=== PATIENT | male | born 1935 | race Caucasian/White ===

== ENCOUNTER 2016-03-03 20:28 | Inpatient (IN) ==
[2016-03-03] MEDS ORDERED: Ondansetron 4 MG/2 ML VIAL IVP PRN (23:43)
[2016-03-03] MEDS ORDERED: 0.9 % Sodium Chloride 500 ML IVC ONE (23:43)
[2016-03-03] MEDS ORDERED: Vancomycin 1,250 MG in D5% in Water 250 ML IVPB SCH (23:45)
[2016-03-03] MEDS ORDERED: *HR* LORazepam 2 MG/ML VIAL IVP PRN (23:45)
--- NOTE | 2016-03-03 23:56 | Internal Med History&Physical ---
Date of Encounter: 03/03/16 Time of Encounter: 23:52 Assessment and Plan (1) Wound infection Current visit: Yes Status: Acute Wound cultures will be performed. wound care will follow the patient will be started empirically on vanc and Zosyn. (2) Alcohol abuse Current visit: No Status: Acute Last drink yesterday noon will be our CIWA protocol. no withdrawal symptoms or signs currently (3) CHF (congestive heart failure) Current visit: No Status: Acute Clinically compensated. Watch for signs of overload hydrating the patient Qualifiers: Congestive heart failure type: systolic Congestive heart failure chronicity : acute on chronic Qualified Code(s): I50.23 - Acute on chronic systolic ( congestive) heart failure (4) Hypotension Current visit: No Status: Acute Due to sepsis. Improving currently blood pressure is 90s over 60s. Good urine output when the folder was placed. Continue hourly monitoring of the urine output. Continual hydration Qualifiers: Hypotension type: unspecified hypotension type Qualified Code(s): I95.9 - Hypotension, unspecified (5) Urinary tract infection Current visit: No Status: Acute Broad-spectrum antibiotics till cultures are back Qualifiers: Urinary tract infection type: site unspecified Hematuria presence: without hematuria Qualified Code(s): N39.0 - Urinary tract infection, site not specified Internal Medicine - H&P: HPI Chief complaint: hypotension History of present illness: Mr. Nascimento is a 80 year old male with multiple medical problems who was transferred from [facility] because of hypotension. Patient was admitted yesterday after his family noted that he has been getting very weak and confused. He is also been unsteady on his cheng with frequent falls. Families unable to take care of him at home. His health has been declining since his 's and Easter. He is an alcoholic drinks about 6 beers every day last week was yesterday known. It was found that [facility] to have evidence of Ravinder tract infection in addition to multiple decubitus forms. Remained hypotensive after minimal fluid resuscitation soul was sent to our facility for further management. He denies any cough. No sputum production. No abdominal pain or vomiting is able to tolerate food. No chest pain. Past Med Surg Social Fam HX - Past Medical History Medical history: atrial fibrillation, CHF, COPD, coronary artery disease, hypertension, myocardial infarction, TIA, other Psychiatric history: anxiety, depression - Past Surgical History Surgical History: angioplasty/stent, heart valve replacement - Social History Smoking Status: Former smoker Smokeless Tobacco Status: No Alcohol use: heavy Drug use: none Internal Medicine - H&P: Meds Aspirin [Aspirin] 1 tab PO DAILY 08/30/15 [History] Cyanocobalamin (B-12) [Vitamin B12] 1,000 mcg PO DAILY 08/30/15 [History] Gabapentin [Neurontin] 300 mg PO TID 08/30/15 [History] Lisinopril [Zestril] 40 mg PO DAILY 08/30/15 [History] Metoprolol Succinate 50 mg PO BID 08/30/15 [History] Nitroglycerin [Nitrostat] 0.4 mg SL Q3-5MIN PRN 08/30/15 [History] Omeprazole [PriLOSEC] 20 mg PO BID 08/30/15 [History] Tamsulosin HCl [Flomax] 1 cap PO QAM 08/30/15 [History] Amiodarone [Cordarone] 200 mg PO DAILY 03/02/16 [History] Atorvastatin [Lipitor] 10 mg PO HS 03/02/16 [History] Clopidogrel [Plavix] 75 mg PO DAILY 03/02/16 [History] Fluticasone Propionate [Flovent Diskus] 50 mcg IH BID 03/02/16 [History] Furosemide [Lasix] 40 mg PO DAILY 03/02/16 [History] Magnesium Oxide [Magnesium] 400 mg PO BID 03/02/16 [History] Allergies No Known Allergies Allergy (Verified 08/30/15 18:10) All Systems PM: A 10-system review of systems was performed and is negative for pertinent findings except as documented above in the HPI. Review of systems: 10 points of view systems is negative except for HPI. - Constitutional Vitals: Temp Pulse Resp BP Pulse Ox 97.5 F L 87 16 101/61 100 03/03/16 22:31 03/03/16 23:00 03/03/16 23:00 03/03/16 23:00 03/03/16 23:00 Exam: Gen.: patient is alert not in distress. Cardiac: normal S1 S2 no additional sounds or murmur. Chest: Clear auscultation bilaterally abdomen: soft nontender nondistended normal bowel sounds no focal neurological deficits lower extremity lax calf muscles Skin: Multiple open wounds in left foot: left leg has foul smelling drainage according to nurse (just dressed). He also has a necrotic wound on his back as well as stage 2 bed sores
[2016-03-04] MEDS: 0.9 % Sodium Chloride 1,000 ML IVC SCH ×2 (00:09→09:44)
[2016-03-04] MEDS: Piperacillin/Tazobactam 3.375 GM in D5% in Water (Mini-Bag+) 100 ML IVPB SCH ×3 (00:29→16:17)
[2016-03-04 00:32] LABS: Basophils # 0.1 K/mcL (0.0-0.2); Basophils % 0.5 %; Eosinophils # 0.1 K/mcL (0.0-0.6); Eosinophils % 0.4 %; Hematocrit 34.7 % (37.5-50.1); Hemoglobin 12.4 g/dL (12.9-16.9); Immature Granulocytes % 1.9 % (0-4); Lymphocytes % 8.7 %; Mean Corpuscular HGB Conc 35.7 g/dL (31.6-35.5); Mean Corpuscular Hemoglobin 30.8 pg (28.0-33.3); Mean Corpuscular Volume 86.1 fL (83.0-100.0); Mean Platelet Volume 9.4 fL (9.4-12.4); Monocytes % 8.2 %; Neutrophils # 9.6 K/mcL (1.6-8.9); Platelet Count 243 K/mcL (140-400); Red Blood Count 4.03 M/mcL (4.19-5.50); Red Cell Distribution Width 13.3 % (11.5-14.5); Segmented Neutrophils % 80.3 %
[2016-03-04 00:47] LABS: Alanine Aminotransferase 16 Units/L (0-55); Albumin 2.4 g/dL (3.5-5.0); Albumin/Globulin Ratio 0.6 (1.1-2.2); Alkaline Phosphatase 66 Units/L (38-126); Aspartate Amino Transferase 21 Units/L (5-34); BUN/Creatinine Ratio 14 (6-26); Bilirubin,Total 0.8 mg/dL (0.2-1.2); Blood Urea Nitrogen 15 mg/dL (8-26); C-Reactive Protein 99 mg/L (Less than 5); Calcium 8.2 mg/dL (8.6-10.8); Carbon Dioxide 19 mEq/L (19-29); Chloride 103 mEq/L (98-109); Globulin 3.7 g/dL (2.4-3.5); Glucose 117 mg/dL (70-99); Magnesium 1.5 mg/dL (1.6-2.6); Osmolality,Calculated 272 (280-300); Potassium 3.3 mEq/L (3.5-4.5); Sodium 130 mEq/L (136-145); Total Protein 6.1 g/dL (6.0-8.3); eGFR For African Americans > 60 (> 60); eGFR For Non-African Americans > 60 (> 60)
[2016-03-04] MEDS ORDERED: Vancomycin 1,250 MG in D5% in Water 250 ML IVPB SCH ×2 (01:00→13:00)
[2016-03-04] MEDS ORDERED: Potassium Chloride 20 MEQ, Lidocaine 1% 2 ML in D5% in Water 250 ML IVPB ONE (05:51)
[2016-03-04] MEDS ORDERED: Magnesium Sulfate 2 GM in D5% in Water 100 ML IVPB ONE (05:51)
[2016-03-04] MEDS: *HR* Heparin 5,000 UNIT/ML VIAL SQ SCH ×2 (06:11→18:27)
--- NOTE | 2016-03-04 07:33 | Pulmonology Consult Note ---
<Art Garcia - Last Filed: 03/04/16 11:43> Date of Encounter: 03/04/16 Time of Encounter: 07:33 Assessment and Plan (1) Wound infection Current Visit: Yes Status: Acute Patient has a large wound on the left lateral foot. This appears to be infected. Patient is on antibiotics with vancomycin and Zosyn. Cultures are pending. Patient initially had some hypotension that responded well to fluids. Mental status appears to be at baseline. We will consult wound care for further recommendations on wound treatment. (2) Change in mental status Current Visit: No Status: Acute Likely related to his underlying infection as discussed above. Patient had sure workup at an outside hospital. Per family his mental status is at his baseline. Qualifiers: Altered mental status type: unspecified Qualified Code(s): R41.82 - Altered mental status, unspecified (3) Atrial fibrillation Current Visit: Yes Status: Acute Per outside records the patient has chronic atrial fibrillation. At this time is in atrial fibrillation with rate well controlled. Patient has a [id number]- Vasc of 7, however review of outside records revealed that the patient is not on anticoagulation, likely due to issues with falls. Given the patient's borderline low blood pressure we will hold AV node blocking agents at this time. We will continue to monitor his hemodynamic status. Qualifiers: Atrial fibrillation type: chronic Qualified Code(s): I48.2 - Chronic atrial fibrillation (4) Alcohol abuse Current Visit: No Status: Acute She has a significant history of alcohol abuse with reported alcohol intake of up to 15 beers a day. This could also be contributing to his altered mental status. There are no evidence of withdrawal symptoms. Patient not place in the CIWA protocol. We will replace thiamine and vitamins. (5) CHF (congestive heart failure) Current Visit: No Status: Chronic Stable at this time. No evidence of fluid overload. Respiratory status is good. We will continue to monitor. Qualifiers: Congestive heart failure type: systolic Congestive heart failure chronicity : chronic Qualified Code(s): I50.22 - Chronic systolic (congestive) heart failure (6) Hyponatremia Current Visit: Yes Status: Acute Mild with a sodium of 131. Asymptomatic. Patient appears somewhat hypovolemic , likely related to poor by mouth intake in the setting of alcohol abuse. Chronicity is unknown at this time. Patient was given fluid hydration. We will continue to monitor. (7) DVT prophylaxis Current Visit: Yes Status: Acute Heparin 5000 units subcutaneous twice a day. History of Present Illness Consult date: 03/04/16 Requesting physician: Terrell Valdez Reason for consult: other (Hypotension) Chief complaint: Confusion History of present illness: Patient is a 80-year-old male with history of coronary disease, atrial fibrillation who presented initially with confusion. Patient is somewhat of a poor historian. Per family for about 2 weeks the patient has not been himself, they state he has been dizzy and has had episodes of confusion and not answering questions appropriately. A few days prior to arrival they noticed a large blister on his left foot which turned into a wound. They have been treating him however brought him to the emergency department because of his change in mental status. Upon arrival the patient was found to be hypotensive and was placed in the intensive care unit. At the time I examined the patient is awake, alert and acting appropriately. He states he feels much better and is asking to go this time. He has no other complaints. Past Med Surg Social Fam HX - Past Medical History Medical history: atrial fibrillation, CHF, COPD, coronary artery disease, hypertension, myocardial infarction, TIA, other Psychiatric history: anxiety, depression - Past Surgical History Surgical History: angioplasty/stent, heart valve replacement - Social History Smoking Status: Former smoker Smokeless Tobacco Status: No Alcohol use: heavy Drug use: none Medications and Allergies Aspirin [Aspirin] 1 tab PO DAILY 08/30/15 [History] Cyanocobalamin (B-12) [Vitamin B12] 1,000 mcg PO DAILY 08/30/15 [History] Gabapentin [Neurontin] 300 mg PO TID 08/30/15 [History] Nitroglycerin [Nitrostat] 0.4 mg SL Q3-5MIN PRN 08/30/15 [History] Omeprazole [PriLOSEC] 20 mg PO BID 08/30/15 [History] Tamsulosin HCl [Flomax] 1 cap PO QAM 08/30/15 [History] Atorvastatin [Lipitor] 10 mg PO HS 03/02/16 [History] Clopidogrel [Plavix] 75 mg PO DAILY 03/02/16 [History] Furosemide [Lasix] 40 mg PO DAILY 03/02/16 [History] Diltiazem HCl [Diltiazem 24Hr Cd] 180 mg PO BID 03/04/16 [History] Allergies No Known Allergies Allergy (Verified 08/30/15 18:10) ROS unobtainable: due to mental status All Systems: A 10-system review of systems was performed and is negative for pertinent findings except as documented above in the HPI. Physical Examination Vital Signs: Vital Signs, Last 4 Hours Temp Pulse Resp BP Pulse Ox 03/04/16 06:00 98 20 107/80 100 03/04/16 05:00 84 20 105/56 100 03/04/16 04:30 84 03/04/16 04:29 97.6 F 03/04/16 04:00 81 14 83/73 100 General appearance: no acute distress ENT: oropharynx moist Effort: normal Auscultation: bilateral: clear Cardiovascular: irregular rhythm Gastrointestinal: normoactive bowel sounds, soft, non-tender, non-distended Integumentary: decubitus ulcer (2 superficial ulcers to the buttocks that do not appear infected at this time. Patient also has an ulcer in the mid thoracic back with black eschar present. No evidence of active infection.), other (Patient has a large ulcerated wound on the left foot with surrounding erythema infecting the 3 most lateral toes. There is a small amount of foul- smelling purulent material. There is no bone visualized.) Extremities: no cyanosis, no edema, no clubbing, pulses normal non-focal exam, other (Patient will answer most questions appropriately however he is not the greatest historian and appears occasionally nonsensical. Family states that he is acting like his normal self at this time.) Results - Laboratory Findings CBC and BMP: 03/04/16 07:47 03/04/16 07:47 Abnormal lab findings: Abnormal lab results WBC 11.9 K/mcL (4.3-11.1) H 03/04/16 00:25 RBC 4.03 M/mcL (4.19-5.50) L 03/04/16 00:25 Hgb 12.4 g/dL (12.9-16.9) L 03/04/16 00:25 Hct 34.7 % (37.5-50.1) L 03/04/16 00:25 MCHC 35.7 g/dL (31.6-35.5) H 03/04/16 00:25 Neutrophils # 9.6 K/mcL (1.6-8.9) H 03/04/16 00:25 Sodium 130 mEq/L (136-145) L 03/04/16 00:25 Potassium 3.3 mEq/L (3.5-4.5) L 03/04/16 00:25 Glucose 117 mg/dL (70-99) H 03/04/16 00:25 Calculated Osmolality 272 (280-300) L 03/04/16 00:25 Calcium 8.2 mg/dL (8.6-10.8) L 03/04/16 00:25 Magnesium 1.5 mg/dL (1.6-2.6) L 03/04/16 00:25 C-Reactive Protein 99 mg/L (Less than 5) H 03/04/16 00:25 Albumin 2.4 g/dL (3.5-5.0) L 03/04/16 00:25 Globulin 3.7 g/dL (2.4-3.5) H 03/04/16 00:25 Albumin/Globulin Ratio 0.6 (1.1-2.2) L 03/04/16 00:25 - Clinical Findings Intake & Output: Intake & Output 03/03/16 03/03/16 03/04/16 15:59 23:59 07:59 Intake Total 1210 / 1210 Output Total 800 / 800 500 / 500 Balance -800 / -800 710 / 710 Weight 86.183 kg Consult Discharge Plan - Plan Referrals: NO,PCP [Primary Care Provider] - <Laureano Mcguire W - Last Filed: 03/04/16 12:25> Date of Encounter: 03/04/16 All Systems: A 10-system review of systems was performed and is negative for pertinent findings except as documented above in the HPI. Physical Examination Vital Signs: Vital Signs, Last 4 Hours Temp Pulse Resp BP Pulse Ox 03/04/16 06:00 98 20 107/80 100 03/04/16 05:00 84 20 105/56 100 03/04/16 04:30 84 03/04/16 04:29 97.6 F 03/04/16 04:00 81 14 83/73 100 Results - Laboratory Findings CBC and BMP: 03/04/16 07:47 03/04/16 07:47 Abnormal lab findings: Abnormal lab results WBC 11.9 K/mcL (4.3-11.1) H 03/04/16 00:25 RBC 4.03 M/mcL (4.19-5.50) L 03/04/16 00:25 Hgb 12.4 g/dL (12.9-16.9) L 03/04/16 00:25 Hct 34.7 % (37.5-50.1) L 03/04/16 00:25 MCHC 35.7 g/dL (31.6-35.5) H 03/04/16 00:25 Neutrophils # 9.6 K/mcL (1.6-8.9) H 03/04/16 00:25 Sodium 130 mEq/L (136-145) L 03/04/16 00:25 Potassium 3.3 mEq/L (3.5-4.5) L 03/04/16 00:25 Glucose 117 mg/dL (70-99) H 03/04/16 00:25 Calculated Osmolality 272 (280-300) L 03/04/16 00:25 Calcium 8.2 mg/dL (8.6-10.8) L 03/04/16 00:25 Magnesium 1.5 mg/dL (1.6-2.6) L 03/04/16 00:25 C-Reactive Protein 99 mg/L (Less than 5) H 03/04/16 00:25 Albumin 2.4 g/dL (3.5-5.0) L 03/04/16 00:25 Globulin 3.7 g/dL (2.4-3.5) H 03/04/16 00:25 Albumin/Globulin Ratio 0.6 (1.1-2.2) L 03/04/16 00:25 - Clinical Findings Intake & Output: Intake & Output 03/03/16 03/03/16 03/04/16 15:59 23:59 07:59 Intake Total 1210 / 1210 Output Total 800 / 800 500 / 500 Balance -800 / -800 710 / 710 Weight 86.183 kg - Attending Attestation I examined this patient and my medical decision-making was reviewed with the [employer]/PA/Advanced Practice Nurse/Resident Physician. I agree with the documented findings, disposition and treatment plan as described except to the extent set forth below. Patient seen and examined at bedside Labs, radiology, chart personally reviewed. All lines examined without evidence of infection. Neuro: Awake and alert. Moves all extremities. EtOH abuse banana bag given folate thiamine. Monitor for delirium on CIWA Pulm: Good O2 sats w/o O2. CXR without acute process. Cards: ECG without STEMI trop wnl; History of Afib rate is controlled on not on LTA s/t to falls risk. , hypotension (responsive to crystalloid and lactate wnl)challenge)goal MAP >60 likely s/t sepsis +/- hypovolemia FEN-GI: ADAT Renal: Asymptomatic Hyponatremia multifactorial including excess beer intake chronically and acutely intravascular volume depletion. cont to monitor. ID: Sepsis possible s/t to LE ulcer infection. cont ABx. wounds cultured as would blood and urine. Ortho consulted for foot ulcer Xrays pending Heme/Onc: cont DVT prophylaxis Endo: Glucose monitored Integ: cont skin care per ICU protocol. wound care consulted CODE: Full some evidence of failure to thrive social service consult
[2016-03-04] MEDS ORDERED: Magnesium Sulfate 2 GM in D5% in Water 100 ML IVPB PRN (07:41)
[2016-03-04] MEDS ORDERED: Potassium Phosphate 44 MEQ in 0.9 % Sodium Chloride 250 ML IVPB PRN (07:41)
[2016-03-04] MEDS ORDERED: Calcium Gluconate 1,000 MG in D5% in Water 100 ML IVPB PRN (07:41)
[2016-03-04 07:56] LABS: Basophils # 0.1 K/mcL (0.0-0.2); Basophils % 0.5 %; Eosinophils # 0.1 K/mcL (0.0-0.6); Eosinophils % 0.7 %; Hematocrit 35.9 % (37.5-50.1); Hemoglobin 12.5 g/dL (12.9-16.9); Immature Granulocytes % 1.5 % (0-4); Lymphocytes # 1.4 K/mcL (0.6-4.6); Lymphocytes % 11.5 %; Mean Corpuscular HGB Conc 34.8 g/dL (31.6-35.5); Mean Corpuscular Hemoglobin 30.3 pg (28.0-33.3); Mean Corpuscular Volume 86.9 fL (83.0-100.0); Mean Platelet Volume 9.2 fL (9.4-12.4); Monocytes # 1.1 K/mcL (0.0-1.3); Monocytes % 8.9 %; Neutrophils # 9.3 K/mcL (1.6-8.9); Platelet Count 218 K/mcL (140-400); Red Blood Count 4.13 M/mcL (4.19-5.50); Red Cell Distribution Width 13.5 % (11.5-14.5); Segmented Neutrophils % 76.9 %
[2016-03-04 08:02] LABS: INR 1.2; Prothrombin Time 13.1 Seconds (9.4-12.1)
[2016-03-04 08:09] LABS: Ionized Calcium 1.12 mmol/L (1.15-1.35)
[2016-03-04 08:14] LABS: Alanine Aminotransferase 16 Units/L (0-55); Albumin 2.3 g/dL (3.5-5.0); Albumin/Globulin Ratio 0.6 (1.1-2.2); Alkaline Phosphatase 68 Units/L (38-126); Aspartate Amino Transferase 23 Units/L (5-34); BUN/Creatinine Ratio 13 (6-26); Bilirubin,Total 0.8 mg/dL (0.2-1.2); Blood Urea Nitrogen 13 mg/dL (8-26); Calcium 8.4 mg/dL (8.6-10.8); Carbon Dioxide 18 mEq/L (19-29); Chloride 103 mEq/L (98-109); Globulin 3.9 g/dL (2.4-3.5); Glucose 103 mg/dL (70-99); Magnesium 1.4 mg/dL (1.6-2.6); Osmolality,Calculated 268 (280-300); Phosphorous 2.5 mg/dL (2.3-4.7); Potassium 3.7 mEq/L (3.5-4.5); Sodium 129 mEq/L (136-145); Total Protein 6.2 g/dL (6.0-8.3); eGFR For African Americans > 60 (> 60); eGFR For Non-African Americans > 60 (> 60)
[2016-03-04] MEDS ORDERED: Aspirin 81 MG TAB.CHEW PO SCH (09:00)
[2016-03-04] MEDS ORDERED: *HR* LORazepam 2 MG/ML VIAL IVP PRN ×6 (10:55→21:20)
[2016-03-04] MEDS ORDERED: Thiamine (B-1) 100 MG, Folic Acid 1 MG, MVI, adult with vitamin K 10 ML in 0.9 % Sodi... IV SCH (11:00)
[2016-03-04] MEDS ORDERED: 0.9 % Sodium Chloride 500 ML IVC ONE (12:14)
[2016-03-04] MEDS ORDERED: Saline Nasal Spray 44 ML BOTTLE NS PRN ×2 (13:53→21:20)
[2016-03-04] MEDS ORDERED: Fluticasone Propionate Nasal 50 MCG/SPRAY BOTTLE NS SCH (14:00)
[2016-03-04] MEDS ORDERED: Gentamicin Oint 15 GM TUBE TP SCH (14:15)
[2016-03-04] MEDS: Azelastine 0.1% Nasal Spray 30 ML BOTTLE NS SCH ×2 (14:33→20:27)
[2016-03-04 17:38] LABS: Hemoglobin A1C 5.6 %
[2016-03-04] MEDS ORDERED: Ondansetron 4 MG/2 ML VIAL IVP PRN (21:20)
[2016-03-04] MEDS: *HR* HYDROcodone/Acet 5/325 mg TABLET PO PRN (22:33)
[2016-03-05] MEDS ORDERED: Vancomycin 1,250 MG in D5% in Water 250 ML IVPB SCH (01:00)
[2016-03-05] MEDS: *HR* Heparin 5,000 UNIT/ML VIAL SQ SCH ×2 (04:45→18:17)
[2016-03-05] MEDS: *HR* HYDROcodone/Acet 5/325 mg TABLET PO PRN (04:45)
[2016-03-05] MEDS: Aspirin 81 MG TAB.CHEW PO SCH (07:46)
[2016-03-05] MEDS: Piperacillin/Tazobactam 3.375 GM in D5% in Water (Mini-Bag+) 100 ML IVPB SCH ×3 (07:47→15:45)
[2016-03-05] MEDS: Azelastine 0.1% Nasal Spray 30 ML BOTTLE NS SCH (07:49)
[2016-03-05] MEDS: Gentamicin Oint 15 GM TUBE TP SCH (07:50)
[2016-03-05] MEDS: Fluticasone Propionate Nasal 50 MCG/SPRAY BOTTLE NS SCH (07:50)
[2016-03-05] MEDS ORDERED: Thiamine (B-1) 100 MG, Folic Acid 1 MG, MVI, adult with vitamin K 10 ML in 0.9 % Sodi... IV SCH (09:00)
[2016-03-05 10:00] LABS: Basophils # 0.1 K/mcL (0.0-0.2); Basophils % 1.4 %; Eosinophils # 0.2 K/mcL (0.0-0.6); Eosinophils % 1.6 %; Hematocrit 34.9 % (37.5-50.1); Hemoglobin 11.8 g/dL (12.9-16.9); Lymphocytes # 1.6 K/mcL (0.6-4.6); Lymphocytes % 17.2 %; Mean Corpuscular HGB Conc 33.8 g/dL (31.6-35.5); Mean Corpuscular Hemoglobin 30.5 pg (28.0-33.3); Mean Corpuscular Volume 90.2 fL (83.0-100.0); Mean Platelet Volume 9.3 fL (9.4-12.4); Monocytes # 0.7 K/mcL (0.0-1.3); Monocytes % 7.2 %; Neutrophils # 6.7 K/mcL (1.6-8.9); Platelet Count 171 K/mcL (140-400); Red Blood Count 3.87 M/mcL (4.19-5.50); Red Cell Distribution Width 13.8 % (11.5-14.5); Segmented Neutrophils % 70.6 %
[2016-03-05 10:08] LABS: BUN/Creatinine Ratio 10 (6-26); Blood Urea Nitrogen 12 mg/dL (8-26); Carbon Dioxide 15 mEq/L (19-29); Chloride 107 mEq/L (98-109); Glucose 112 mg/dL (70-99); Osmolality,Calculated 271 (280-300); Sodium 130 mEq/L (136-145); eGFR For African Americans > 60 (> 60); eGFR For Non-African Americans 56 (> 60)
[2016-03-05 11:24] LABS: Platelet Estimate Slight Decrease (Normal)
[2016-03-05] MEDS ORDERED: Permethrin Cream Rinse 60 ML LIQUID TP ONE (11:52)
--- NOTE | 2016-03-05 11:56 | Internal Med Progress Note ---
Date of Encounter: 03/05/16 Time of Encounter: 10:00 - Assessment and plan (1) Atrial fibrillation Current Visit: Yes Status: Acute Assessment and plan: Chronic, rate controlled, not on anticoagulation possibly from recurrent falls, Home dose of diltiazem 180mg has been held since admission due to hypotension Will continue to monitor and restart based on rate and hemodynamic status Qualifiers: Atrial fibrillation type: chronic Qualified Code(s): I48.2 - Chronic atrial fibrillation (2) Hyponatremia Current Visit: Yes Status: Chronic Assessment and plan: Chronic, from 08/2015, stable at 130 Will continue to monitor (3) Wound infection Current Visit: Yes Status: Acute Assessment and plan: Foot X-ray does not show any gas No fever Initial leukocytosis on admission has resolved on vancomycin and zosyn, continue till final cultures, will deescalate prn Blood culture partial no growth Wound care review (4) Alcohol abuse Current Visit: Yes Status: Chronic Assessment and plan: Change IV thiamine to oral Continue folate/multivitamin Monitor for withdrawal (5) Depression Current Visit: Yes Status: Chronic Assessment and plan: NO SI Qualifiers: Depression Type: unspecified Qualified Code(s): F32.9 - Major depressive disorder, single episode, unspecified (6) Hypotension Current Visit: Yes Status: Acute Assessment and plan: BP has been low normal , no longer on IVF, not on antihypertensives Monitor closely Qualifiers: Hypotension type: unspecified hypotension type Qualified Code(s): I95.9 - Hypotension, unspecified (7) Urinary tract infection Current Visit: Yes Status: Acute Assessment and plan: Urine culture with no growth Continue antibiotics Qualifiers: Urinary tract infection type: site unspecified Hematuria presence: without hematuria Qualified Code(s): N39.0 - Urinary tract infection, site not specified (8) CHF (congestive heart failure) Current Visit: Yes Status: Chronic Assessment and plan: No signs of congestion or overload Monitor closely Qualifiers: Congestive heart failure type: systolic Congestive heart failure chronicity : chronic Qualified Code(s): I50.22 - Chronic systolic (congestive) heart failure - Subjective Interval history: 80 Y/O M admitted for management of Sepsis with altered mental status, Hypotension, UTI and wound infection from left foot Associated history of alcohol abuse. PMH significant for CHF, Afib not on anticoagulation, CAD Seen at bedside denies new complains RN noted head lice - Constitutional Vitals: Temp Pulse Resp BP Pulse Ox 98.0 F 91 18 95/48 99 03/05/16 11:33 03/05/16 11:33 03/05/16 11:33 03/05/16 11:33 03/05/16 11:33 General appearance: Present: A&O X 3, pleasant, no acute distress - Head Head exam: Present: atraumatic - Eye Eye exam: Present: PERRL, conjuntiva pink, sclera anicteric - ENT ENT exam: Present: mucous membranes moist - Neck Neck exam general surgery: Present: normal inspection - Respiratory Respiratory exam: Present: CTAB. Absent: rales, rhonchi, wheezes - Cardiovascular Cardiovascular exam: Present: irregular rhythm, +S1, +S2. Absent: +S3, systolic murmur - GI/Abdominal GI/Abdominal exam: Present: normal bowel sounds, soft, no peritoneal signs. Absent: tenderness - Extremities Exam Extremities exam: Absent: pedal edema Additional comments: Left foot in wound dressing, surrounding hyperemia seen up to the ankle, mild edema Right foot unremarkable - Neurological Exam Neurological exam: Present: alert, oriented X3, no focal deficits. Absent: pronater drift, facial droop, speech deficit - Skin Skin exam: Present: dry Internal Medicine: Result - Labs CBC & Chem 7: 03/05/16 09:47 03/05/16 09:47 Labs: Short CBC 03/05/16 Range/Units 09:47 WBC 9.5 (4.3-11.1) K/mcL Hgb 11.8 L (12.9-16.9) g/dL Hct 34.9 L (37.5-50.1) % Plt Count 171 (140-400) K/mcL Neutrophils # 6.7 (1.6-8.9) K/mcL BMP 03/05/16 09:47 Sodium 130 L Potassium 4.0 Chloride 107 Carbon Dioxide 15 L BUN 12 Creatinine 1.25 Glucose 112 H Calcium 8.0 L - ABG Interpretation ABG results: PT/INR, D-dimer PT 13.1 Seconds (9.4-12.1) H 03/04/16 07:47 - Impressions Impressions Foot X-Ray 03/04/16 12:12 IMPRESSION: No evidence of focal soft tissue gas. No specific radiographic evidence of osteomyelitis. Findings suggesting diabetes. Moderate 1st MTP joint osteoarthritis. D/ / Jesse Dennis MD / Jesse Dennis MD Interpreting Provider: Jesse Dennis MD - VTE Documentation of Mechanical Device: Intermittent pneumatic compression device Consult Discharge Plan - Plan Referrals: NO,PCP [Primary Care Provider] -
[2016-03-05] MEDS: Vancomycin 1,000 MG in D5% in Water 250 ML IVPB SCH (15:30)
[2016-03-06] MEDS: Piperacillin/Tazobactam 3.375 GM in D5% in Water (Mini-Bag+) 100 ML IVPB SCH ×4 (00:18→23:32)
[2016-03-06] MEDS: Azelastine 0.1% Nasal Spray 30 ML BOTTLE NS SCH ×2 (00:18→07:44)
[2016-03-06] MEDS: *HR* Heparin 5,000 UNIT/ML VIAL SQ SCH ×2 (04:36→16:44)
[2016-03-06] MEDS: Vancomycin 1,000 MG in D5% in Water 250 ML IVPB SCH ×2 (04:36→16:45)
[2016-03-06] MEDS: *HR* HYDROcodone/Acet 5/325 mg TABLET PO PRN (04:43)
[2016-03-06 06:06] LABS: BUN/Creatinine Ratio 9 (6-26); Blood Urea Nitrogen 11 mg/dL (8-26); Calcium 8.1 mg/dL (8.6-10.8); Carbon Dioxide 15 mEq/L (19-29); Chloride 108 mEq/L (98-109); Glucose 106 mg/dL (70-99); Osmolality,Calculated 272 (280-300); Potassium 4.2 mEq/L (3.5-4.5); Sodium 131 mEq/L (136-145); eGFR For African Americans > 60 (> 60); eGFR For Non-African Americans > 60 (> 60)
[2016-03-06] MEDS: Multivit/Ca/Min/Fe/FA 1 TAB TABLET PO SCH (07:42)
[2016-03-06] MEDS: Folic Acid 1 MG TABLET PO SCH (07:43)
[2016-03-06] MEDS: Aspirin 81 MG TAB.CHEW PO SCH (07:43)
[2016-03-06] MEDS: Thiamine (B-1) 100 MG TABLET PO SCH (07:43)
[2016-03-06] MEDS: Fluticasone Propionate Nasal 50 MCG/SPRAY BOTTLE NS SCH (07:44)
[2016-03-06] MEDS: Gentamicin Oint 15 GM TUBE TP SCH (07:45)
[2016-03-06 08:10] LABS: Basophils # 0.1 K/mcL (0.0-0.2); Basophils % 1.1 %; Eosinophils # 0.2 K/mcL (0.0-0.6); Eosinophils % 1.9 %; Hematocrit 30.9 % (37.5-50.1); Hemoglobin 10.9 g/dL (12.9-16.9); Immature Granulocytes % 1.9 % (0-4); Immature Platelets 2.3 % (1.1-6.1); Lymphocytes # 1.9 K/mcL (0.6-4.6); Lymphocytes % 20.9 %; Mean Corpuscular HGB Conc 35.3 g/dL (31.6-35.5); Mean Corpuscular Hemoglobin 30.7 pg (28.0-33.3); Mean Platelet Volume 9.8 fL (9.4-12.4); Monocytes # 0.9 K/mcL (0.0-1.3); Monocytes % 9.7 %; Neutrophils # 5.8 K/mcL (1.6-8.9); Platelet Count 260 K/mcL (140-400); Red Blood Count 3.55 M/mcL (4.19-5.50); Red Cell Distribution Width 13.8 % (11.5-14.5); Segmented Neutrophils % 64.5 %
[2016-03-06 09:03] LABS: Platelet Estimate Normal (Normal)
--- NOTE | 2016-03-06 15:30 | Internal Med Progress Note ---
Date of Encounter: 03/06/16 Time of Encounter: 11:00 - Assessment and plan (1) Atrial fibrillation Current Visit: Yes Status: Acute Assessment and plan: Chronic, rate controlled, not on anticoagulation possibly from recurrent falls, Home dose of diltiazem 180mg has been held since admission due to hypotension Will restart at low dose, short acting Monitor BP closely Qualifiers: Atrial fibrillation type: chronic Qualified Code(s): I48.2 - Chronic atrial fibrillation (2) Hyponatremia Current Visit: Yes Status: Chronic Assessment and plan: Chronic, from 08/2015, stable at 130-131 Will continue to monitor (3) Wound infection Current Visit: Yes Status: Acute Assessment and plan: Foot X-ray does not show any gas No fever Initial leukocytosis on admission has resolved on vancomycin and zosyn, continue till final cultures, will deescalate prn Blood culture partial no growth Wound care review (4) Alcohol abuse Current Visit: Yes Status: Chronic Assessment and plan: Continue folate/multivitamin/thiamine Monitor for withdrawal (5) Depression Current Visit: Yes Status: Chronic Assessment and plan: NO SI Qualifiers: Depression Type: unspecified Qualified Code(s): F32.9 - Major depressive disorder, single episode, unspecified (6) Hypotension Current Visit: Yes Status: Acute Assessment and plan: Improving Monitor closely Qualifiers: Hypotension type: unspecified hypotension type Qualified Code(s): I95.9 - Hypotension, unspecified (7) Urinary tract infection Current Visit: Yes Status: Acute Assessment and plan: Urine culture with no growth Continue antibiotics Qualifiers: Urinary tract infection type: site unspecified Hematuria presence: without hematuria Qualified Code(s): N39.0 - Urinary tract infection, site not specified (8) CHF (congestive heart failure) Current Visit: Yes Status: Chronic Assessment and plan: No signs of congestion or overload Monitor closely Qualifiers: Congestive heart failure type: systolic Congestive heart failure chronicity : chronic Qualified Code(s): I50.22 - Chronic systolic (congestive) heart failure (9) Pediculosis capitis Current Visit: Yes Status: Acute Assessment and plan: Gave permethrin day 1 yesterday Rpt after 9 days - Subjective Interval history: 80 Y/O M admitted for management of Sepsis with altered mental status, Hypotension, UTI and wound infection from left foot Associated history of alcohol abuse. PMH significant for CHF, Afib not on anticoagulation, CAD Seen at bedside denies new complains BP is improving Patient with Afib, diltiazem had been held due to hypotension, will restart low dose short acting - Constitutional Vitals: Temp Pulse Resp BP Pulse Ox 97.6 F 110 18 108/80 95 03/06/16 15:07 03/06/16 15:07 03/06/16 15:07 03/06/16 15:07 03/06/16 15:07 General appearance: Present: A&O X 3, pleasant, no acute distress - Head Head exam: Present: atraumatic, normocephalic - Eye Eye exam: Present: PERRL, conjuntiva pink, sclera anicteric Pupils: Present: PERRL - Neck Neck exam general surgery: Present: supple, trachea midline. Absent: lymphadenopathy - Respiratory Respiratory exam: Present: CTAB. Absent: accessory muscle use, rales, rhonchi, wheezes - Cardiovascular Cardiovascular exam: Present: RRR, +S1, +S2. Absent: diastolic murmur, gallop, rubs, systolic murmur - GI/Abdominal GI/Abdominal exam: Present: normal bowel sounds, soft, no peritoneal signs. Absent: distended, tenderness - Extremities Exam Extremities exam: Present: warm, radial pulses palpable and symetrical. Absent : calf tenderness, cyanotic, pedal edema Additional comments: Left lateral wound dressing clean and dry - Neurological Exam Neurological exam: Present: CN II-XII intact, oriented X3, no focal deficits. Absent: pronater drift, facial droop, speech deficit - Skin Skin exam: Present: dry, excoriation Internal Medicine: Result - Labs CBC & Chem 7: 03/06/16 07:03 03/06/16 05:27 Labs: Short CBC 03/06/16 Range/Units 07:03 WBC 8.9 (4.3-11.1) K/mcL Hgb 10.9 L (12.9-16.9) g/dL Hct 30.9 L (37.5-50.1) % Plt Count 260 D (140-400) K/mcL Neutrophils # 5.8 (1.6-8.9) K/mcL BMP 03/06/16 05:27 Sodium 131 L Potassium 4.2 Chloride 108 Carbon Dioxide 15 L BUN 11 Creatinine 1.16 Glucose 106 H Calcium 8.1 L - ABG Interpretation ABG results: PT/INR, D-dimer PT 13.1 Seconds (9.4-12.1) H 03/04/16 07:47 - VTE Documentation of Mechanical Device: Intermittent pneumatic compression device Consult Discharge Plan - Plan Referrals: NO,PCP [Primary Care Provider] -
[2016-03-07] MEDS: Vancomycin 1,000 MG in D5% in Water 250 ML IVPB SCH ×2 (03:38→15:50)
[2016-03-07] MEDS: *HR* Heparin 5,000 UNIT/ML VIAL SQ SCH ×2 (05:27→18:10)
[2016-03-07] MEDS: Azelastine 0.1% Nasal Spray 30 ML BOTTLE NS SCH ×3 (05:28→19:58)
[2016-03-07 06:21] LABS: Basophils # 0.1 K/mcL (0.0-0.2); Basophils % 1.6 %; Eosinophils # 0.2 K/mcL (0.0-0.6); Eosinophils % 2.8 %; Hematocrit 33.4 % (37.5-50.1); Hemoglobin 11.3 g/dL (12.9-16.9); Immature Granulocytes % 2.2 % (0-4); Lymphocytes # 1.8 K/mcL (0.6-4.6); Lymphocytes % 22.5 %; Mean Corpuscular HGB Conc 33.8 g/dL (31.6-35.5); Mean Corpuscular Hemoglobin 30.2 pg (28.0-33.3); Mean Corpuscular Volume 89.3 fL (83.0-100.0); Mean Platelet Volume 9.3 fL (9.4-12.4); Monocytes # 0.8 K/mcL (0.0-1.3); Monocytes % 9.3 %; Platelet Count 207 K/mcL (140-400); Red Blood Count 3.74 M/mcL (4.19-5.50); Red Cell Distribution Width 14.1 % (11.5-14.5); Segmented Neutrophils % 61.6 %
[2016-03-07 06:36] LABS: BUN/Creatinine Ratio 11 (6-26); Blood Urea Nitrogen 10 mg/dL (8-26); Carbon Dioxide 20 mEq/L (19-29); Chloride 107 mEq/L (98-109); Glucose 118 mg/dL (70-99); Osmolality,Calculated 276 (280-300); Potassium 3.5 mEq/L (3.5-4.5); Sodium 133 mEq/L (136-145); eGFR For African Americans > 60 (> 60); eGFR For Non-African Americans > 60 (> 60)
[2016-03-07] MEDS: Piperacillin/Tazobactam 3.375 GM in D5% in Water (Mini-Bag+) 100 ML IVPB SCH (07:43)
[2016-03-07] MEDS: Folic Acid 1 MG TABLET PO SCH (07:44)
[2016-03-07] MEDS: Thiamine (B-1) 100 MG TABLET PO SCH (07:44)
[2016-03-07] MEDS: Multivit/Ca/Min/Fe/FA 1 TAB TABLET PO SCH (07:44)
[2016-03-07] MEDS: Aspirin 81 MG TAB.CHEW PO SCH (07:45)
[2016-03-07] MEDS: Fluticasone Propionate Nasal 50 MCG/SPRAY BOTTLE NS SCH (07:47)
[2016-03-07] MEDS: Gentamicin Oint 15 GM TUBE TP SCH (07:48)
--- NOTE | 2016-03-07 15:10 | Podiatry Progress Note ---
Date of Encounter: 03/07/16 Time of Encounter: 12:00 - Assessment and Plan (1) Burn Current Visit: Yes Status: Acute Area assessed and examined Continue current treatment Cleanse daily, apply Santyl (nickel thickness) to burn sites, wet to dry 4x4 and kerlex Change more frequently if dressing becomes saturated Patient to be minimal weight bearing to LLE. Monitor for clinical signs of infection- call office with any concerns Patient to follow up with in clinic in 1 week after discharge. Please send patient home with home health care for dressing changes Please provide post op shoe for foot to prevent pressure to burn sites. Subjective Interval history: Patient seen per on Monday03/04/2016 and evaluated for cellulitis and ulceration of left foot. Determined to most likely be a burn injury. Patient is known alcoholic and does not remember injury occurrence. Patient resting comfortably up to chair today. States he has been up to ambulate with PT. Nurse at bedside states dressing was just changed. States it is bleeding some. Patient states he is feeling good. Patient denies any fevers or chills. Denies any pain to foot. Patient awaiting discharge. SW at bedside, inquiring about LTCF for dressing changes, patient refusing. Attempting to provide home alf care at this time. Patient states he will accept that. Patient denies any calf pain, SOB or chest pain. Objective - Vital Signs Vital Signs: Vital Signs Temp Pulse Resp BP Pulse Ox 03/07/16 12:14 98.5 F 93 18 119/72 98 03/07/16 11:19 94 20 113/77 97 03/07/16 11:03 103 03/07/16 07:57 98 16 95 03/07/16 06:58 97.3 F L 97 16 105/71 95 03/07/16 06:00 100 16 95/60 95 03/07/16 04:23 98.2 F 03/07/16 03:41 16 95/60 93 L 03/07/16 03:00 97 03/07/16 02:00 16 94 L 03/07/16 00:31 98.3 F 97 16 93/59 97 03/06/16 23:00 92 03/06/16 19:31 98.4 F 92 18 96/63 96 03/06/16 19:00 92 Intake and Output 0103/07/16 03/07/16 23:59 07:59 15:59 Intake Total 350 / 350 830 / 830 63 / 63 Output Total 475 / 475 725 / 725 450 / 450 Balance -125 / -125 105 / 105 -387 / -387 Intake: IV Fluids 350 / 350 350 / 350 63 / 63 Zosyn 3.375 GM In 100 / 100 100 / 100 63 / 63 Dextrose 5% (Minibag+) 100 ML 100 ML @ 25 mls/hr IVPB Q8HR BRET Rx#: [id number] Vancocin 1,000 MG In 250 / 250 250 / 250 Dextrose 5% 250 ML @ 167 mls/hr IVPB Q12H BRET Rx#: [id number] Oral 0 / 0 480 / 480 Output: Catheter 475 / 475 725 / 725 450 / 450 Other: Meal Lunch Percent of Meal Consumed 10% Weight 88.5 kg Patient Weight 03/07/16 23:59 Weight 88.5 kg - Exam Exam: Patient awake, alert and oriented LLE pulses palpable DP/PT. Cap refill <3 seconds. Minimal sensation to light touch. Mild edema and erythema noted surrounding ulcerated tissue. Minimal movement of toes at this time due to swelling but no limited ROM to ankle joint Patient denies any pain with palpation at this time No cyanosis or pallor noted Warm from toes to tibia. Burn area noted to dorsal, plantar and lateral aspect of foot as well as to pads of toes #2 #3 #4 #5. Appears to be healing. Dorsal burn measuring [id number] - pink healthy tissue, moderate amount of yellow slough Burn to toe #4 measuring [id number]- covered in slough and eschar tissue Area to toe #5 measuring [id number] covered in slough and eschar tissue Area to plantar aspect of foot pink, viable tissue, very small amount of slough to center- 4cm x3cm Mild irritation noted surrounding burn sites No purulent drainage Small amount of bloody drainage to dorsal wound, - Lab Result Diagrams: 03/07/16 05:12 03/07/16 05:12 Labs: Abnormal lab results RBC 3.74 M/mcL (4.19-5.50) L 03/07/16 05:12 Hgb 11.3 g/dL (12.9-16.9) L 03/07/16 05:12 Hct 33.4 % (37.5-50.1) L 03/07/16 05:12 MPV 9.3 fL (9.4-12.4) L 03/07/16 05:12 PT 13.1 Seconds (9.4-12.1) H 03/04/16 07:47 Sodium 133 mEq/L (136-145) L 03/07/16 05:12 Glucose 118 mg/dL (70-99) H 03/07/16 05:12 Calculated Osmolality 276 (280-300) L 03/07/16 05:12 Calcium 8.0 mg/dL (8.6-10.8) L 03/07/16 05:12 Ionized Calcium 1.12 mmol/L (1.15-1.35) L 03/04/16 07:47 Magnesium 1.4 mg/dL (1.6-2.6) L 03/04/16 07:47 C-Reactive Protein 99 mg/L (Less than 5) H 03/04/16 00:25 Albumin 2.3 g/dL (3.5-5.0) L 03/04/16 07:47 Globulin 3.9 g/dL (2.4-3.5) H 03/04/16 07:47 Albumin/Globulin Ratio 0.6 (1.1-2.2) L 03/04/16 07:47 Microbiology, Last 48 Hours 03/04/16 04:56 Anaerobic Culture - Preliminary Other-Specify in Comments At this time, no anaerobic growth is present. The culture will be finalized after 5 days of incubation. - VTE Documentation of Mechanical Device: Intermittent pneumatic compression device Consult Discharge Plan - Plan Referrals: NO,PCP [Primary Care Provider] -
--- NOTE | 2016-03-07 15:43 | Internal Med Progress Note ---
Date of Encounter: 03/07/16 Time of Encounter: 10:00 - Assessment and plan (1) Atrial fibrillation Current Visit: Yes Status: Acute Assessment and plan: Chronic, rate controlled, not on anticoagulation possibly from recurrent falls, Home dose of diltiazem 180mg bid was held to hypotension Diltiazem has been restarted at 30mg q6hr, which seems to control the HR without overtly dropping his BP Will continue same Consider changing to ER prior to discharge Monitor BP closely Qualifiers: Atrial fibrillation type: chronic Qualified Code(s): I48.2 - Chronic atrial fibrillation (2) Hyponatremia Current Visit: Yes Status: Chronic Assessment and plan: Chronic, from 08/2015, stable at 130-133 Will continue to monitor (3) Wound infection Current Visit: Yes Status: Acute Assessment and plan: Foot X-ray does not show any gas No fever Initial leukocytosis on admission has resolved on vancomycin and zosyn, Day 3 Blood culture partial no growth, anerobic culture no growth D/C Vanco and Zosyn after today Started on Augmentin a.m , for possible discharge a.m (4) Alcohol abuse Current Visit: Yes Status: Chronic Assessment and plan: Continue folate/multivitamin/thiamine Monitor for withdrawal (5) Depression Current Visit: Yes Status: Chronic Assessment and plan: NO SI Qualifiers: Depression Type: unspecified Qualified Code(s): F32.9 - Major depressive disorder, single episode, unspecified (6) Hypotension Current Visit: Yes Status: Resolved Assessment and plan: Resolved Monitor closely Qualifiers: Hypotension type: unspecified hypotension type Qualified Code(s): I95.9 - Hypotension, unspecified (7) Urinary tract infection Current Visit: Yes Status: Acute Assessment and plan: Urine culture with no growth Continue antibiotics Qualifiers: Urinary tract infection type: site unspecified Hematuria presence: without hematuria Qualified Code(s): N39.0 - Urinary tract infection, site not specified (8) CHF (congestive heart failure) Current Visit: Yes Status: Chronic Assessment and plan: No signs of congestion or overload Monitor closely Qualifiers: Congestive heart failure type: systolic Congestive heart failure chronicity : chronic Qualified Code(s): I50.22 - Chronic systolic (congestive) heart failure (9) Pediculosis capitis Current Visit: Yes Status: Acute Assessment and plan: Gave permethrin day 1 03/05/16 Rpt treatment as out-patient - Subjective Interval history: 80 Y/O M admitted for management of Sepsis with altered mental status, Hypotension, UTI and wound infection from left foot Associated history of alcohol abuse. PMH significant for CHF, Afib not on anticoagulation, CAD Patient seen at bedside, distant, states no new complains SW notes noted for possible abuse, which patient vehemently denies His BP has improved, His leukocytosis has resolved Hyponatremia is improving Urine and blood culture with no growth, will discontinue antibiotics after today 's dose Patient has an indwelling Christopher, will discontinue today, and he has home services for wound care set up for tomorrow he may be discharged tomorrow if he remains stable - Constitutional Vitals: Temp Pulse Resp BP Pulse Ox 97.7 F 106 18 111/85 96 03/07/16 15:31 03/07/16 15:31 03/07/16 15:31 03/07/16 15:31 03/07/16 15:31 General appearance: Present: A&O X 3, pleasant, no acute distress - Head Head exam: Present: atraumatic, normocephalic - Eye Eye exam: Present: PERRL, conjuntiva pink, sclera anicteric Pupils: Present: PERRL - Neck Neck exam general surgery: Present: supple, trachea midline. Absent: lymphadenopathy - Respiratory Respiratory exam: Present: CTAB. Absent: accessory muscle use, rales, rhonchi, wheezes - Cardiovascular Cardiovascular exam: Present: RRR, +S1, +S2. Absent: diastolic murmur, gallop, rubs, systolic murmur - GI/Abdominal GI/Abdominal exam: Present: normal bowel sounds, soft, no peritoneal signs. Absent: distended, tenderness - Extremities Exam Additional comments: Left foot in wound dressing, clean and dry - Neurological Exam Neurological exam: Present: CN II-XII intact, oriented X3, no focal deficits. Absent: pronater drift, facial droop, speech deficit - Skin Skin exam: Present: dry Internal Medicine: Result - Labs CBC & Chem 7: 03/07/16 05:12 03/07/16 05:12 Labs: Short CBC 03/07/16 Range/Units 05:12 WBC 8.2 (4.3-11.1) K/mcL Hgb 11.3 L (12.9-16.9) g/dL Hct 33.4 L (37.5-50.1) % Plt Count 207 (140-400) K/mcL Neutrophils # 5.0 (1.6-8.9) K/mcL BMP 03/07/16 05:12 Sodium 133 L Potassium 3.5 Chloride 107 Carbon Dioxide 20 BUN 10 Creatinine 0.95 Glucose 118 H Calcium 8.0 L - ABG Interpretation ABG results: PT/INR, D-dimer PT 13.1 Seconds (9.4-12.1) H 03/04/16 07:47 - VTE Documentation of Mechanical Device: Intermittent pneumatic compression device Consult Discharge Plan - Plan Referrals: NO,PCP [Primary Care Provider] -
--- NOTE | 2016-03-07 16:49 | Podiatry Consult Note ---
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 #2 Recommend Darco flat black postop shoe to ambulate. #3 Recommend home health care if the patient is not placed in the facility which I highly recommend. History of Present Illness Chief complaint: Wound left foot dorsal/plantar including toes 345 HPI: Mr. Nascimento is a 80 year old male admitted to the [facility] presently in ICU bed 6 surrounded by family. Patient is alert and oriented 3. I have been asked to see the patient for a wound of his left foot. Patient does not have any recollection or history of injury to his left foot. I can only gleaned family and patient to the recollection and knowledge. Patient had fallen and had remained stationary for some time, after the fall. Patient does state he has a space heater close to him at home. On cursory exam we appreciate what is likely a burn to the dorsal aspect of his left foot as well as digits #3 for an 5 on the dorsal lateral aspect. The intertriginous areas are spared. We also see some blistering of the plantar sulcus of the respective digits as well.. Unfortunately the patient and family cannot relate an accurate history of the wounds Past Med Surg Social Fam HX - Past Medical History Medical history: atrial fibrillation, CHF, COPD, coronary artery disease, hypertension, myocardial infarction, TIA, other Psychiatric history: anxiety, depression - Past Surgical History Surgical History: angioplasty/stent, heart valve replacement - Social History Smoking Status: Former smoker Smokeless Tobacco Status: No Alcohol use: heavy Drug use: none Medications and Allergies Aspirin [Aspirin] 1 tab PO DAILY 08/30/15 [History] Cyanocobalamin (B-12) [Vitamin B12] 1,000 mcg PO DAILY 08/30/15 [History] Gabapentin [Neurontin] 300 mg PO TID 08/30/15 [History] Nitroglycerin [Nitrostat] 0.4 mg SL Q3-5MIN PRN 08/30/15 [History] Omeprazole [PriLOSEC] 20 mg PO BID 08/30/15 [History] Tamsulosin HCl [Flomax] 1 cap PO QAM 08/30/15 [History] Atorvastatin [Lipitor] 10 mg PO HS 03/02/16 [History] Clopidogrel [Plavix] 75 mg PO DAILY 03/02/16 [History] Furosemide [Lasix] 40 mg PO DAILY 03/02/16 [History] Diltiazem HCl [Diltiazem 24Hr Cd] 180 mg PO BID 03/04/16 [History] Allergies No Known Allergies Allergy (Verified 08/30/15 18:10) All Systems Reviewed: A 10-system review of systems was performed and is negative for pertinent findings except as documented above in the HPI. Physical Exam - Constitutional Vitals: Temp Pulse Resp BP Pulse Ox 97.7 F 110 16 111/85 96 03/07/16 15:31 03/07/16 15:54 03/07/16 15:54 03/07/16 15:54 03/07/16 15:54 - Ankle & Foot left Ankle appearance: swelling Foot swelling: dorsal, plantar (Exam: Vascular pedal pulses are palpable DP and PT of the left foot. We have +1 edema of the left foot and leg. No cyanosis no pallor on elevation no rubor on dependency. No gross varicosities. Neurologic: Patient with loss of protective sensation, epicritic sensation and vibratory sensation from toes to tibial bilaterally. Musculoskeletal no gross defect or deformity patient does exhibit hammertoe deformity #345 left foot. Integument patient has a wound full thickness with previous blistering involving the dorsal aspect of the left distal forefoot lateral aspect as well as the dorsal and dorsal lateral aspect of toes 34 and 5 as well as the plantar aspect of the toes. The medial aspect of the toes is spared as well as the plantar aspect of the toes except for the distal tips of the toes. Nails are uninvolved. This as a distinct clinical appearance of the burn) Results - Labs Result Diagrams: 03/07/16 05:12 03/07/16 05:12 Labs: Abnormal lab results RBC 3.74 M/mcL (4.19-5.50) L 03/07/16 05:12 Hgb 11.3 g/dL (12.9-16.9) L 03/07/16 05:12 Hct 33.4 % (37.5-50.1) L 03/07/16 05:12 MPV 9.3 fL (9.4-12.4) L 03/07/16 05:12 PT 13.1 Seconds (9.4-12.1) H 03/04/16 07:47 Sodium 133 mEq/L (136-145) L 03/07/16 05:12 Glucose 118 mg/dL (70-99) H 03/07/16 05:12 Calculated Osmolality 276 (280-300) L 03/07/16 05:12 Calcium 8.0 mg/dL (8.6-10.8) L 03/07/16 05:12 Ionized Calcium 1.12 mmol/L (1.15-1.35) L 03/04/16 07:47 Magnesium 1.4 mg/dL (1.6-2.6) L 03/04/16 07:47 C-Reactive Protein 99 mg/L (Less than 5) H 03/04/16 00:25 Albumin 2.3 g/dL (3.5-5.0) L 03/04/16 07:47 Globulin 3.9 g/dL (2.4-3.5) H 03/04/16 07:47 Albumin/Globulin Ratio 0.6 (1.1-2.2) L 03/04/16 07:47 H & H 03/07/16 Range/Units 05:12 Hgb 11.3 L (12.9-16.9) g/dL Hct 33.4 L (37.5-50.1) % All other labs normal. Consult Discharge Plan - Plan Referrals: NO,PCP [Primary Care Provider] -
[2016-03-07] MEDS: *HR* HYDROcodone/Acet 5/325 mg TABLET PO PRN (19:58)
[2016-03-08 06:13] LABS: Basophils # 0.1 K/mcL (0.0-0.2); Basophils % 1.3 %; Eosinophils # 0.2 K/mcL (0.0-0.6); Eosinophils % 2.6 %; Hematocrit 34.7 % (37.5-50.1); Hemoglobin 11.9 g/dL (12.9-16.9); Immature Granulocytes % 1.6 % (0-4); Lymphocytes # 1.4 K/mcL (0.6-4.6); Lymphocytes % 18.1 %; Mean Corpuscular HGB Conc 34.3 g/dL (31.6-35.5); Mean Corpuscular Hemoglobin 30.6 pg (28.0-33.3); Mean Corpuscular Volume 89.2 fL (83.0-100.0); Mean Platelet Volume 9.3 fL (9.4-12.4); Monocytes # 0.7 K/mcL (0.0-1.3); Monocytes % 8.9 %; Neutrophils # 5.1 K/mcL (1.6-8.9); Platelet Count 207 K/mcL (140-400); Red Blood Count 3.89 M/mcL (4.19-5.50); Red Cell Distribution Width 14.1 % (11.5-14.5); Segmented Neutrophils % 67.5 %
[2016-03-08 06:34] LABS: BUN/Creatinine Ratio 12 (6-26); Blood Urea Nitrogen 10 mg/dL (8-26); Calcium 8.5 mg/dL (8.6-10.8); Carbon Dioxide 24 mEq/L (19-29); Chloride 103 mEq/L (98-109); Glucose 97 mg/dL (70-99); Osmolality,Calculated 277 (280-300); Potassium 3.6 mEq/L (3.5-4.5); Sodium 134 mEq/L (136-145); eGFR For African Americans > 60 (> 60); eGFR For Non-African Americans > 60 (> 60)
[2016-03-08] MEDS: Fluticasone Propionate Nasal 50 MCG/SPRAY BOTTLE NS SCH (07:32)
[2016-03-08] MEDS: Gentamicin Oint 15 GM TUBE TP SCH (07:32)
[2016-03-08] MEDS: Aspirin 81 MG TAB.CHEW PO SCH (07:33)
[2016-03-08] MEDS: Folic Acid 1 MG TABLET PO SCH (07:33)
[2016-03-08] MEDS: Thiamine (B-1) 100 MG TABLET PO SCH (07:33)
[2016-03-08] MEDS: Multivit/Ca/Min/Fe/FA 1 TAB TABLET PO SCH (07:33)
[2016-03-08] MEDS: *HR* Heparin 5,000 UNIT/ML VIAL SQ SCH (07:35)
[2016-03-08] MEDS: Azelastine 0.1% Nasal Spray 30 ML BOTTLE NS SCH (07:38)
[2016-03-08] MEDS ORDERED: cephALEXin 500 MG CAPSULE PO SCH (09:00)
--- NOTE | 2016-03-08 14:28 | Discharge Summary ---
Date of Encounter: 03/09/16 Time of Encounter: 14:00 - Discharge Diagnosis (1) Atrial fibrillation Priority: Secondary Status: Acute Qualifiers: Atrial fibrillation type: chronic Qualified Code(s): I48.2 - Chronic atrial fibrillation (2) Maxillary sinusitis Priority: Secondary Status: Acute Qualifiers: Chronicity: acute Recurrence: not specified as recurrent Qualified Code(s ): J01.00 - Acute maxillary sinusitis, unspecified (3) Urinary tract infection Priority: Primary Status: Acute Qualifiers: Urinary tract infection type: site unspecified Hematuria presence: without hematuria Qualified Code(s): N39.0 - Urinary tract infection, site not specified (4) Wound infection Priority: Primary Status: Acute (5) Alcohol abuse Priority: Primary Status: Chronic (6) Sepsis Priority: Primary Status: Acute Qualifiers: Sepsis type: sepsis due to unspecified organism Qualified Code(s): A41.9 - Sepsis, unspecified organism - Discharge Medications Prescriptions: Amoxicillin/Clavulanate [Augmentin] 875 mg PO BIDWM #14 tablet Collagenase Oint [Santyl] 1 appl TP DAILY #2 tube Ergocalciferol (VITAMIN D2) [Drisdol (50,000 Unit)] 50,000 unit PO QWEEK #15 capsule Fluticasone Propionate Nasal [Flonase] 50 mcg NS DAILY #1 bottle Folic Acid 1 mg PO DAILY #90 tablet Gentamicin Oint [Garamycin] 1 appl TP DAILY #2 tube HYDROcodone/Acet 5/325 mg [[place] 5-325 mg] 1 tab PO Q8H PRN #30 tablet PRN Reason: Moderate Pain Magnesium Oxide [Magnesium] 400 mg PO BID #60 tablet Multivit/Ca/Min/Fe/FA [Thera M Plus] 1 tab PO DAILY #90 tablet Saline Nasal [place] [[place] Nasal [place]] 2 spray NS Q2H PRN #2 bottle PRN Reason: Congestion Thiamine (B-1) [Vitamin B-1] 100 mg PO DAILY #90 tablet Home Medications: Aspirin 1 tab PO DAILY 08/30/15 [History] Cyanocobalamin (B-12) [Vitamin B12] 1,000 mcg PO DAILY 08/30/15 [History] Gabapentin [Neurontin] 300 mg PO TID 08/30/15 [History] Nitroglycerin [Nitrostat] 0.4 mg SL Q3-5MIN PRN 08/30/15 [History] Omeprazole [PriLOSEC] 20 mg PO BID 08/30/15 [History] Tamsulosin HCl [Flomax] 1 cap PO QAM 08/30/15 [History] Atorvastatin [Lipitor] 10 mg PO HS 03/02/16 [History] Clopidogrel [Plavix] 75 mg PO DAILY 03/02/16 [History] Furosemide [Lasix] 40 mg PO DAILY 03/02/16 [History] Diltiazem HCl [Diltiazem 24Hr Cd] 180 mg PO BID 03/04/16 [History] Amoxicillin/Clavulanate [Augmentin] 875 mg PO BIDWM #14 tablet 03/08/16 [Rx] Collagenase Oint [Santyl] 1 appl TP DAILY #2 tube 03/08/16 [Rx] Ergocalciferol (VITAMIN D2) [Drisdol (50,000 Unit)] 50,000 unit PO QWEEK #15 capsule 03/08/16 [Rx] Fluticasone Propionate Nasal [Flonase] 50 mcg NS DAILY #1 bottle 03/08/16 [Rx] Folic Acid 1 mg PO DAILY #90 tablet 03/08/16 [Rx] Gentamicin Oint [Garamycin] 1 appl TP DAILY #2 tube 03/08/16 [Rx] HYDROcodone/Acet 5/325 mg [[place] 5-325 mg] 1 tab PO Q8H PRN #30 tablet 03/08/16 [Rx] Magnesium Oxide [Magnesium] 400 mg PO BID #60 tablet 03/08/16 [Rx] Multivit/Ca/Min/Fe/FA [Thera M Plus] 1 tab PO DAILY #90 tablet 03/08/16 [Rx] Saline Nasal [place] [[place] Nasal [place]] 2 spray NS Q2H PRN #2 bottle 03/08/16 [Rx ] Thiamine (B-1) [Vitamin B-1] 100 mg PO DAILY #90 tablet 03/08/16 [Rx] Allergies/Adverse Reactions: Allergies No Known Allergies Allergy (Verified 08/30/15 18:10) Date of admission: 03/03/16 22:19 Primary care physician: PCP NO Consults: 03/03/16 23:39 Consult to Occupational Therapy [CONS] Routine Comment: Evaluate, develop and implement POC Consult to Physical Therapy [CONS] Routine Comment: Evaluate, develop and implement POC 03/03/16 23:45 Consult to Video Tape Duplicator [CONS] Routine Reason for SW Consult: ECF placement 03/04/16 11:42 Consult to Wound Care [CONS] Routine Reason for Consult: Foot wound, decubitus ulcers, non-diabetic Call Completed: No 03/04/16 12:13 Consult to Podiatry [CONS] Routine Consulting Provider: [facility] Reason for Consult: Foot wound Call Completed: Yes 03/04/16 12:29 Consult to Video Tape Duplicator [CONS] Routine Reason for SW Consult: chronic illness Discharging clinician: Amada Hastings - Patient Status Disposition: Home Health Service Condition: Good Functional capacity at discharge: uses cane/walker Overall status at discharge: patient is progressing back to baseline - Discharge Instructions Instructions: Atrial Fibrillation (DC), Depression (DC) Follow Up With: NO,PCP [Primary Care Provider] - MO,PCP [Non-Partnered Physician] - 03/18/16 9:00 am Additional Instructions: Follow up with Podiatry as schabrenda , wound nurse to follow up as an outpatient - Diet and Activity Activity: resume usual activities as tolerated Diet: regular diet Interval History: Mr. Nascimento is a 80 year old male admitted with sepsis secondary to urinary tract infection left food wound infection infection. Patient was confused hypotensive. Septic workup was obtained ,Patient was started on empiric antibiotics include vancomycin and Zosyn in addition to aggressive hydration. Blood cultures are so far negative. Wound cultures showed no gross. Patient has history of alcohol use, patient was placed on serial scale . History of atrial fibrillation history of fall and heavy alcohol use poor candidate for anticoagulation. Prior to arrival family noticed a large blister on his left foot which turned into a wound. Patient stated that he fell down on the ground and his feet touch heater . They stated they have been treating his wound at home. Patient has burn to the dorsal aspect of his left foot as well as digits # 3 for an 5 on the dorsal lateral aspect. The intertriginous areas are spared. We also see some blistering of the plantar sulcus of the respective digits as well. 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 #2 Recommend Darco flat black postop shoe to ambulate, Recommend home health care if the patient is not placed in the facility which I highly recommend. Patient decided to go home with home health care. Patient denies any chest pain or shortness of breath. Patient is tolerating all his meals. Counseling patient about home physical therapy. Counseling patient about nutrition. veryhigh risk for CVA with his atrial fibrillation. Need to have further follow-up with cardiology for further evaluation after stopping drinking alcohol . Discussed with patient and family at bedside about lifestyle modification . Discharge diagnosis Sepsis secondary to urinary tract infection and wound infection Alcohol use Left foot wound is secondary to burn History of atrial fibrillation for the high risk of CVA need further evaluation by cardiology Hospital course: Mr. Nascimento is a 80 year old male - Time Spent with Patient Total time spent providing and/or coordinating discharge services: Greater than 30 minutes - Constitutional Vitals: Temp Pulse Resp BP Pulse Ox 97.8 F 109 18 103/71 94 L 03/08/16 11:35 03/08/16 11:35 03/08/16 11:35 03/08/16 11:35 03/08/16 11:35 General appearance: Present: A&O X 3, pleasant, no acute distress - VTE Documentation of Mechanical Device: Intermittent pneumatic compression device
--- NOTE | 2016-03-08 14:32 | Physician Discharge Referral ---
- Diagnosis (1) Atrial fibrillation Status: Acute (2) Urinary tract infection Status: Acute (3) Wound infection Status: Acute - Respiratory Orders Smoking Cessation: Smoking cessation has been advised. For more information, call the [place] Tobacco Quit Line at 8-944-AFQG-NOW. - Diet/Nutrition Diet/Nutrition Orders: Cardiac - Activity Activity Orders: Walker - Services Needed Following services are medically necessary services: Nursing, Physical Therapy ( Continue to cleanse left foot with soap and water twice a day and apply Santyl underneath a saline moist to dry dressing until such time wounds have completely healed. #2 Recommend Darco flat black postop shoe to ambulate.) - Transfer Medications Prescriptions: Collagenase Oint [Santyl] 1 appl TP DAILY #2 tube Ergocalciferol (VITAMIN D2) [Drisdol (50,000 Unit)] 50,000 unit PO QWEEK #15 capsule Fluticasone Propionate Nasal [Flonase] 50 mcg NS DAILY #1 bottle Folic Acid 1 mg PO DAILY #90 tablet Gentamicin Oint [Garamycin] 1 appl TP DAILY #2 tube HYDROcodone/Acet 5/325 mg [[place] 5-325 mg] 1 tab PO Q8H PRN #30 tablet PRN Reason: Moderate Pain Multivit/Ca/Min/Fe/FA [Thera M Plus] 1 tab PO DAILY #90 tablet Saline Nasal [place] [[place] Nasal [place]] 2 spray NS Q2H PRN #2 bottle PRN Reason: Congestion Thiamine (B-1) [Vitamin B-1] 100 mg PO DAILY #90 tablet Home Medications: Aspirin 1 tab PO DAILY 08/30/15 [History] Cyanocobalamin (B-12) [Vitamin B12] 1,000 mcg PO DAILY 08/30/15 [History] Gabapentin [Neurontin] 300 mg PO TID 08/30/15 [History] Nitroglycerin [Nitrostat] 0.4 mg SL Q3-5MIN PRN 08/30/15 [History] Omeprazole [PriLOSEC] 20 mg PO BID 08/30/15 [History] Tamsulosin HCl [Flomax] 1 cap PO QAM 08/30/15 [History] Atorvastatin [Lipitor] 10 mg PO HS 03/02/16 [History] Clopidogrel [Plavix] 75 mg PO DAILY 03/02/16 [History] Furosemide [Lasix] 40 mg PO DAILY 03/02/16 [History] Diltiazem HCl [Diltiazem 24Hr Cd] 180 mg PO BID 03/04/16 [History] Collagenase Oint [Santyl] 1 appl TP DAILY #2 tube 03/08/16 [Rx] Ergocalciferol (VITAMIN D2) [Drisdol (50,000 Unit)] 50,000 unit PO QWEEK #15 capsule 03/08/16 [Rx] Fluticasone Propionate Nasal [Flonase] 50 mcg NS DAILY #1 bottle 03/08/16 [Rx] Folic Acid 1 mg PO DAILY #90 tablet 03/08/16 [Rx] Gentamicin Oint [Garamycin] 1 appl TP DAILY #2 tube 03/08/16 [Rx] HYDROcodone/Acet 5/325 mg [[place] 5-325 mg] 1 tab PO Q8H PRN #30 tablet 03/08/16 [Rx] Multivit/Ca/Min/Fe/FA [Thera M Plus] 1 tab PO DAILY #90 tablet 03/08/16 [Rx] Saline Nasal [place] [[place] Nasal [place]] 2 spray NS Q2H PRN #2 bottle 03/08/16 [Rx ] Thiamine (B-1) [Vitamin B-1] 100 mg PO DAILY #90 tablet 03/08/16 [Rx] Allergies/Adverse Reactions: Allergies No Known Allergies Allergy (Verified 08/30/15 18:10) Certification: Further, I certify that my clinical findings support that this patient is homebound (i.e. absences from home require considerable and taxing effort and are for medical reasons or shinto services or infrequently or short duration when for other reasons) because: Homebound Reason: Patient requires assistance of a person or device to safely leave home, Leaving home requires considerable and taxing effort due to condition Attestation: My signature below is to certify that this patient is under my care and that I, or nurse practitioner, or a physician's executive assistant working with me, has a face-to -face encounter with this patient. Plan: #1 Continue to cleanse left foot with soap and water twice a day and apply Santyl underneath a saline moist to dry dressing until such time wounds have completely healed. #2 Recommend Darco flat black postop shoe to ambulate. #3 Recommend home health care if the patient is not placed in the facility which I highly recommend.
[2016-03-08] MEDS ORDERED: Aminoglycoside Consult 1 EACH MC ONE (15:13)
[2016-03-09 07:52] VITALS: BP 103/71
== END 2016-03-08 15:14 | disposition home health service (06) | DRG 871 ==
LOC: ICNU 22:19 → SUATTDRO 22:19 → 2NNU 03-04 21:20
PROVIDERS: ADMIT Family Medicine; ATTEND Internal Medicine

== ENCOUNTER 2016-04-04 18:16 | Inpatient (IN) ==
[2016-04-04] MEDS ORDERED: Acetaminophen 325 MG TABLET PO PRN (23:01)
[2016-04-04] MEDS ORDERED: Naloxone 0.4 MG/ML INJ IVP PRN (23:01)
[2016-04-04] MEDS ORDERED: Nitroglycerin 0.4 MG TAB.SUBL SL PRN (23:18)
[2016-04-04] MEDS ORDERED: Saline Nasal Spray 44 ML BOTTLE NS PRN (23:18)
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
[2016-04-05] MEDS: Diltiazem CD (24hr) 180 MG CAPSULE PO SCH ×3 (00:27→20:01)
[2016-04-05] MEDS ORDERED: 0.9 % Sodium Chloride 1,000 ML ONE (02:35)
[2016-04-05] MEDS: Piperacillin/Tazobactam 3.375 GM in D5% in Water (Mini-Bag+) 100 ML IVPB SCH ×3 (03:25→18:00)
[2016-04-05] MEDS: Vancomycin 1,250 MG in D5% in Water 250 ML IVPB SCH (05:03)
[2016-04-05 06:21] LABS: Basophils # 0.1 K/mcL (0.0-0.2); Basophils % 0.9 %; Eosinophils # 0.1 K/mcL (0.0-0.6); Eosinophils % 1.2 %; Hematocrit 32.9 % (37.5-50.1); Hemoglobin 11.1 g/dL (12.9-16.9); Immature Granulocytes % 1.3 % (0-4); Lymphocytes # 1.3 K/mcL (0.6-4.6); Lymphocytes % 14.9 %; Mean Corpuscular HGB Conc 33.7 g/dL (31.6-35.5); Mean Corpuscular Hemoglobin 29.7 pg (28.0-33.3); Mean Platelet Volume 9.5 fL (9.4-12.4); Monocytes # 0.7 K/mcL (0.0-1.3); Monocytes % 8.4 %; Neutrophils # 6.3 K/mcL (1.6-8.9); Platelet Count 212 K/mcL (140-400); Red Blood Count 3.74 M/mcL (4.19-5.50); Red Cell Distribution Width 13.7 % (11.5-14.5); Segmented Neutrophils % 73.3 %
[2016-04-05 06:32] LABS: BUN/Creatinine Ratio 15 (6-26); Blood Urea Nitrogen 15 mg/dL (8-26); Calcium 8.2 mg/dL (8.6-10.8); Carbon Dioxide 21 mEq/L (19-29); Chloride 102 mEq/L (98-109); Glucose 111 mg/dL (70-99); Osmolality,Calculated 278 (280-300); Potassium 3.7 mEq/L (3.5-4.5); Sodium 133 mEq/L (136-145); eGFR For African Americans > 60 (> 60); eGFR For Non-African Americans > 60 (> 60)
[2016-04-05] MEDS: Folic Acid 1 MG TABLET PO SCH (08:38)
[2016-04-05] MEDS: Gabapentin 300 MG CAPSULE PO SCH ×3 (08:38→20:00)
[2016-04-05] MEDS: Magnesium Oxide 400 MG TABLET PO SCH ×2 (08:38→20:00)
[2016-04-05] MEDS: Cyanocobalamin (B-12) 1,000 MCG TABLET PO SCH (08:38)
[2016-04-05] MEDS: Thiamine (B-1) 100 MG TABLET PO SCH (08:38)
[2016-04-05] MEDS: Multivit/Ca/Min/Fe/FA 1 TAB TABLET PO SCH (08:38)
[2016-04-05] MEDS: Aspirin 81 MG TAB.CHEW PO SCH (08:38)
[2016-04-05] MEDS: 0.9 % Sodium Chloride 1,000 ML IVC SCH ×4 (08:43→23:08)
--- NOTE | 2016-04-05 08:45 | Internal Med Progress Note ---
Date of Encounter: 04/05/16 Time of Encounter: 08:42 - Assessment and plan (1) Sepsis Current Visit: Yes Status: Acute Assessment and plan: Sepsis secondary to urinary tract infection combination of cellulitis/necrotic ulcers in his left lower extremity and mid thoracic area Hypotension, leukocytosis and tachycardia Continue vancomycin IV and Zosyn day 2 Send cultures Aggressive hydration, consider pressors if needed Qualifiers: Sepsis type: sepsis due to unspecified organism Qualified Code(s): A41.9 - Sepsis, unspecified organism (2) Acute kidney injury Current Visit: Yes Status: Acute Assessment and plan: Improving on IV fluids (3) Necrotic eschar Current Visit: Yes Status: Acute (4) Necrotic toes Current Visit: Yes Status: Acute Assessment and plan: Dr. Posada was consulted, consider debridement versus amputation of the toes/ left foot (5) Atrial fibrillation Current Visit: No Status: Acute Assessment and plan: Hold Cardizem due to hypotension Hold Lasix Qualifiers: Atrial fibrillation type: chronic Qualified Code(s): I48.2 - Chronic atrial fibrillation (6) Urinary tract infection Current Visit: No Status: Acute Qualifiers: Urinary tract infection type: acute cystitis Hematuria presence: with hematuria Qualified Code(s): N30.01 - Acute cystitis with hematuria (7) Alcohol abuse Current Visit: No Status: Chronic Assessment and plan: Ativan as needed (8) Hypotension Current Visit: No Status: Resolved Assessment and plan: Omeprazole for GI prophylaxis and some tenderness happening for DVT prophylaxis Qualifiers: Hypotension type: unspecified hypotension type Qualified Code(s): I95.9 - Hypotension, unspecified (9) Peripheral artery disease Current Visit: Yes Status: Acute Assessment and plan: Continue aspirin and Plavix High risk for sepsis - Time Spent With Patient Greater than 35 minutes - Subjective Interval history: The patient is hypotensive in the 80s, complains of pain on his left lower extremity 5 out of 10 in intensity. Denies any abdominal pain, shortness of breath, no dysuria. No fevers - Constitutional Vitals: Temp Pulse Resp BP Pulse Ox 97.4 F L 95 19 83/50 100 04/05/16 06:40 04/05/16 06:40 04/05/16 06:40 04/05/16 06:40 04/05/16 06:40 General appearance: Present: A&O X 3 - Head Head exam: Present: atraumatic, normocephalic - Eye Eye exam: Present: PERRL, conjuntiva pink, sclera anicteric Pupils: Present: PERRL - Neck Neck exam general surgery: Present: supple, trachea midline. Absent: lymphadenopathy - Respiratory Respiratory exam: Present: decreased breath sounds, CTAB. Absent: accessory muscle use, rales, rhonchi, wheezes - Cardiovascular Cardiovascular exam: Present: RRR, +S1, +S2, tachycardia. Absent: diastolic murmur, gallop, rubs, systolic murmur - GI/Abdominal GI/Abdominal exam: Present: normal bowel sounds, soft, no peritoneal signs. Absent: distended, tenderness - Extremities Exam Extremities exam: Present: calf tenderness, warm, radial pulses palpable and symetrical. Absent: cyanotic, pedal edema Additional comments: Multiple left lower extremity wounds appeared "necrotic, the patient does not have any sensitivity below his left ankle, has eschars 4 cm x 5 cm in the left mid langford and close to the knee. Cannot feel the pedal pulse in the left lower extremity but foot is warm and the patient is able to wiggle his toes, area is very erythematous - Neurological Exam Neurological exam: Present: CN II-XII intact, oriented X3, no focal deficits. Absent: pronater drift, facial droop, speech deficit - Skin Skin exam: Present: dry. Absent: intact Additional comments: 4 cm wound in the mid thoracic area that appears necrotic surrounded by erythema Internal Medicine: Result - Labs CBC & Chem 7: 04/05/16 05:57 04/05/16 05:57 Labs: Short CBC 04/05/16 Range/Units 05:57 WBC 8.7 (4.3-11.1) K/mcL Hgb 11.1 L D (12.9-16.9) g/dL Hct 32.9 L (37.5-50.1) % Plt Count 212 (140-400) K/mcL Neutrophils # 6.3 (1.6-8.9) K/mcL BMP 04/05/16 05:57 Sodium 133 L Potassium 3.7 Chloride 102 Carbon Dioxide 21 BUN 15 Creatinine 0.99 Glucose 111 H Calcium 8.2 L Consult Discharge Plan - Plan Referrals: NO,PCP [Primary Care Provider] -
[2016-04-05] MEDS: Fluticasone Propionate Nasal 50 MCG/SPRAY BOTTLE NS SCH (08:52)
[2016-04-05] MEDS ORDERED: *HR* LORazepam 2 MG/ML VIAL IVP PRN ×4 (08:56→15:23)
[2016-04-05] MEDS: *HR* Heparin 5,000 UNIT/ML VIAL SQ SCH ×2 (08:57→19:59)
[2016-04-05] MEDS ORDERED: Vancomycin 1,250 MG in D5% in Water 250 ML IVPB SCH ×2 (09:00)
[2016-04-05] MEDS ORDERED: Furosemide 40 MG TABLET PO SCH (09:00)
[2016-04-05] MEDS: Gentamicin Oint 15 GM TUBE TP SCH (16:13)
[2016-04-05] MEDS: *HR* HYDROcodone/Acet 5/325 mg TABLET PO PRN (20:00)
--- NOTE | 2016-04-05 21:29 | Electrocardiograph Report ---
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
[2016-04-06] MEDS: Piperacillin/Tazobactam 3.375 GM in D5% in Water (Mini-Bag+) 100 ML IVPB SCH ×3 (01:42→17:41)
[2016-04-06] MEDS: Vancomycin 1,250 MG in D5% in Water 250 ML IVPB SCH (04:17)
[2016-04-06] MEDS: 0.9 % Sodium Chloride 1,000 ML IVC SCH ×3 (04:18→22:13)
[2016-04-06 04:46] LABS: Hematocrit 30.1 % (37.5-50.1); Mean Corpuscular HGB Conc 33.2 g/dL (31.6-35.5); Mean Corpuscular Hemoglobin 29.8 pg (28.0-33.3); Mean Corpuscular Volume 89.6 fL (83.0-100.0); Mean Platelet Volume 9.8 fL (9.4-12.4); Platelet Count 172 K/mcL (140-400); Red Blood Count 3.36 M/mcL (4.19-5.50); Red Cell Distribution Width 13.8 % (11.5-14.5)
[2016-04-06 04:55] LABS: BUN/Creatinine Ratio 17 (6-26); Blood Urea Nitrogen 14 mg/dL (8-26); Calcium 7.3 mg/dL (8.6-10.8); Carbon Dioxide 19 mEq/L (19-29); Chloride 108 mEq/L (98-109); Glucose 96 mg/dL (70-99); Osmolality,Calculated 276 (280-300); Potassium 3.6 mEq/L (3.5-4.5); Sodium 133 mEq/L (136-145); eGFR For African Americans > 60 (> 60); eGFR For Non-African Americans > 60 (> 60)
[2016-04-06] MEDS: *HR* Heparin 5,000 UNIT/ML VIAL SQ SCH ×2 (05:55→22:06)
[2016-04-06] MEDS: Gentamicin Oint 15 GM TUBE TP SCH (05:58)
[2016-04-06] MEDS: Diltiazem CD (24hr) 180 MG CAPSULE PO SCH ×2 (09:03→22:15)
[2016-04-06] MEDS: Aspirin 81 MG TAB.CHEW PO SCH (09:10)
[2016-04-06] MEDS: Gabapentin 300 MG CAPSULE PO SCH ×3 (09:10→22:07)
[2016-04-06] MEDS: Multivit/Ca/Min/Fe/FA 1 TAB TABLET PO SCH (09:10)
[2016-04-06] MEDS: Magnesium Oxide 400 MG TABLET PO SCH ×2 (09:10→22:06)
[2016-04-06] MEDS: Cyanocobalamin (B-12) 1,000 MCG TABLET PO SCH (09:10)
[2016-04-06] MEDS: Folic Acid 1 MG TABLET PO SCH (09:10)
[2016-04-06] MEDS: Thiamine (B-1) 100 MG TABLET PO SCH (09:10)
[2016-04-06] MEDS: Fluticasone Propionate Nasal 50 MCG/SPRAY BOTTLE NS SCH (09:11)
--- NOTE | 2016-04-06 10:07 | ECHO - Doppler Report ---
Echocardiogram Name: Oren Nascimento Date of Study: 04/05/2016 Date: 1935 Ht: 70.0 in Medical Record#: [id number] Age: 80 Wt: 177.0 lb Gender: Male BSA: 1.98 Order #: [id number] Location: [facility] Room #: 2A51 Reading Physician: Lon Wiggins DO, FACLa Nena, MARYJO, SAUL Hand Heel Seat Fitter: Ivy Spaulding RDCS Ordering Physician: Cheo Wilkinson MD Primary Physician: None Indications: Congestive heart failure Impressions: LVEF 45-50%. Not all LV segments were well visualized. Normal LV chamber size and wall thickness. Atypical septal motion consistent with post-operative status. Indeterminate diastolic function. Normal right ventricular structure and function. No evidence of pulmonary hypertension identified. RVSP not well obtained due to poor TR jet. Overall, LVEF appears slightly better compared to prior reports. Future studies should be performed with Definity contrast enhancement. Findings: Study Quality * Technically sub-optimal due to poor echocardiographic windows. ECG Findings * Rhythm appears to be atrial fibrillation. Left Ventricle * LVEF 45-50%. * Normal LV chamber size and wall thickness. Not all LV segments were well visualized. * Atypical septal motion consistent with post-operative status. * Indeterminate diastolic function. Right Ventricle * Normal right ventricular structure and function. Left Atrium * Moderately dilated left atrium. Right Atrium * Moderately dilated right atrium. Interatrial Septum * Interatrial septum not well evaluated. Aortic Valve * Aortic valve not well visualized. * No aortic regurgitation. * No aortic stenosis. Mitral Valve * Normal mitral valve structure and function. * No mitral regurgitation. * No mitral stenosis. Tricuspid Valve * Grossly normal tricuspid valve structure and function. * Trace tricuspid regurgitation. * No evidence of pulmonary hypertension identified. RVSP not well obtained due to poor TR jet. Pulmonic Valve * Pulmonic valve not well visualized. Aorta * Normally sized aortic root. Pericardium * The pericardium appears normal. IVC * IVC not well visualized. Pulmonary Artery * Normal visualized portions of the main pulmonary artery. History Hypertension History of CAD/PTCA Myocardial Infarction Coronary Artery Bypass Graft Congestive Heart Failure 02/20/2013 a Previous Echo was performed. Measurements: BP: 94/ 57 2D Normal Values RVIDd: 3.24 cm <2.7 cm IVSd: 1.04 cm 0.6 - 1.0 cm LVIDd: 5.41 cm 3.7 - 5.6 cm LVPWd: 1.12 cm 0.6 - 1.1 cm LVIDs: 3.19 cm 1.5 - 3.6 cm AO: 3.10 cm < 4.0 cm LA: 3.40 cm 2.0 - 4.0cm %FS: 41.00 cm >25 % LA volume: 68 Mitral Valve Peak E:1.28 m/sec Peak E' Lat Kaz:12.1 cm/s Peak E' Med Kaz:5.59 cm/s E/E' Lat Ratio:10 E/E' Med Ratio:22.9 Tricuspid Valve TV Regurg Peak Grad: 14.00mmHg TV Regurg Peak Kaz: 1.87m/sec Updated by Lon Wiggins DO, FACLa Nena, SAUL SIBLEY on 04/06/2016 10:00:20 AM electronically signed on 04/06/2016 10:02:08 AM with status of Final
--- NOTE | 2016-04-06 14:28 | Internal Med Progress Note ---
Date of Encounter: 04/06/16 Time of Encounter: 14:24 - Assessment and plan (1) Sepsis Current Visit: Yes Status: Acute Assessment and plan: Sepsis secondary to urinary tract infection combination of cellulitis/necrotic ulcers in his left lower extremity and mid thoracic area Hypotension, leukocytosis and tachycardia Continue vancomycin IV and Zosyn day 3 cultures growing GPC Aggressive hydration, consider pressors if needed Qualifiers: Sepsis type: sepsis due to unspecified organism Qualified Code(s): A41.9 - Sepsis, unspecified organism (2) Acute kidney injury Current Visit: Yes Status: Acute Assessment and plan: Improving on IV fluids (3) Necrotic eschar Current Visit: Yes Status: Acute (4) Necrotic toes Current Visit: Yes Status: Acute Assessment and plan: Dr. Posada was consulted, consider debridement versus amputation of the toes/ left foot (5) Atrial fibrillation Current Visit: No Status: Acute Assessment and plan: Hold Cardizem due to hypotension Hold Lasix Qualifiers: Atrial fibrillation type: chronic Qualified Code(s): I48.2 - Chronic atrial fibrillation (6) Urinary tract infection Current Visit: No Status: Acute Qualifiers: Urinary tract infection type: acute cystitis Hematuria presence: with hematuria Qualified Code(s): N30.01 - Acute cystitis with hematuria (7) Alcohol abuse Current Visit: No Status: Chronic Assessment and plan: Ativan as needed (8) Hypotension Current Visit: No Status: Resolved Assessment and plan: IVF Qualifiers: Hypotension type: unspecified hypotension type Qualified Code(s): I95.9 - Hypotension, unspecified (9) Peripheral artery disease Current Visit: Yes Status: Acute Assessment and plan: Continue aspirin and Plavix High risk for sepsis (10) CHF (congestive heart failure) Current Visit: Yes Status: Acute Assessment and plan: EF 45-50% diastolic function indetermined hold lasix for now Qualifiers: Congestive heart failure type: combined Qualified Code(s): 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 Denies any abdominal pain, shortness of breath, no dysuria. No fevers - Constitutional Vitals: Temp Pulse Resp BP Pulse Ox 97 F L 80 20 83/45 99 04/06/16 10:34 04/06/16 10:34 04/06/16 10:34 04/06/16 10:34 04/06/16 10:34 General appearance: Present: A&O X 3 - Head Head exam: Present: atraumatic, normocephalic - Eye Eye exam: Present: PERRL, conjuntiva pink, sclera anicteric Pupils: Present: PERRL - Neck Neck exam general surgery: Present: supple, trachea midline. Absent: lymphadenopathy - Respiratory Respiratory exam: Present: CTAB. Absent: accessory muscle use, rales, rhonchi, wheezes - Cardiovascular Cardiovascular exam: Present: RRR, +S1, +S2. Absent: diastolic murmur, gallop, rubs, systolic murmur - GI/Abdominal GI/Abdominal exam: Present: normal bowel sounds, soft, no peritoneal signs. Absent: distended, tenderness - Extremities Exam Extremities exam: Present: warm, radial pulses palpable and symetrical. Absent : calf tenderness, cyanotic, pedal edema Additional comments: Multiple left lower extremity wounds appeared "necrotic, the patient does not have any sensitivity below his left ankle, has eschars 4 cm x 5 cm in the left mid langford and close to the knee. Cannot feel the pedal pulse in the left lower extremity but foot is warm and the patient is able to wiggle his toes, area is very erythematous - Neurological Exam Neurological exam: Present: CN II-XII intact, oriented X3, no focal deficits. Absent: pronater drift, facial droop, speech deficit - Skin Skin exam: Present: dry, intact Internal Medicine: Result - Labs CBC & Chem 7: 04/06/16 03:58 04/06/16 03:58 Labs: Short CBC 04/06/16 Range/Units 03:58 WBC 7.9 (4.3-11.1) K/mcL Hgb 10.0 L (12.9-16.9) g/dL Hct 30.1 L (37.5-50.1) % Plt Count 172 (140-400) K/mcL BMP 04/06/16 03:58 Sodium 133 L Potassium 3.6 Chloride 108 Carbon Dioxide 19 BUN 14 Creatinine 0.83 Glucose 96 Calcium 7.3 L Consult Discharge Plan - Plan [facility]errals: [facility] [Non-Partnered Physician] - 04/13/16 1:30 pm (Please follow up as schedule...)
[2016-04-06] MEDS ORDERED: Permethrin Cream Rinse 60 ML LIQUID TP ONE ×2 (16:17→16:30)
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
[2016-04-07] MEDS: Piperacillin/Tazobactam 3.375 GM in D5% in Water (Mini-Bag+) 100 ML IVPB SCH ×3 (02:51→18:10)
[2016-04-07] MEDS: 0.9 % Sodium Chloride 1,000 ML IVC SCH ×5 (03:25→23:13)
[2016-04-07] MEDS: Vancomycin 1,250 MG in D5% in Water 250 ML IVPB SCH (05:02)
[2016-04-07] MEDS: *HR* Heparin 5,000 UNIT/ML VIAL SQ SCH ×2 (06:04→18:23)
[2016-04-07] MEDS: Cyanocobalamin (B-12) 1,000 MCG TABLET PO SCH (10:00)
[2016-04-07] MEDS: Folic Acid 1 MG TABLET PO SCH (10:00)
[2016-04-07] MEDS: Gabapentin 300 MG CAPSULE PO SCH ×3 (10:00→22:15)
[2016-04-07] MEDS: Gentamicin Oint 15 GM TUBE TP SCH (10:01)
[2016-04-07] MEDS: Thiamine (B-1) 100 MG TABLET PO SCH (10:01)
[2016-04-07] MEDS: Magnesium Oxide 400 MG TABLET PO SCH ×2 (10:01→22:15)
[2016-04-07] MEDS: Diltiazem CD (24hr) 180 MG CAPSULE PO SCH ×2 (10:01→22:06)
[2016-04-07] MEDS: Fluticasone Propionate Nasal 50 MCG/SPRAY BOTTLE NS SCH (10:01)
[2016-04-07] MEDS: Aspirin 81 MG TAB.CHEW PO SCH (10:01)
[2016-04-07] MEDS: Multivit/Ca/Min/Fe/FA 1 TAB TABLET PO SCH (10:01)
--- NOTE | 2016-04-07 13:38 | Podiatry Progress Note ---
Date of Encounter: 04/07/16 Time of Encounter: 10:30 - Assessment and Plan (1) Necrotic eschar Current Visit: Yes Status: Acute Current dressings intact Warmth, erythema and softness continues to left heel- MRI ordered Xray negative for osteomyelitis AMADO preliminary - adequate blood flow Please continue current antibiotic treatment per internal med- vanc and zosyn Please float left heel off of bed SW please advise- patient will likely need ECF placement for wound care and antibiotic therapy (per internal med) patient states at bedside today that he will not go to ECF- please advise for discharge planning Dressings reapplied - Please change dressings to toes daily- Santyl, gent, 4x4 and kerlex (2) Necrotic toes Current Visit: Yes Status: Acute Eschar noted to toes #2 #3 #4 #5 of left foot, minimal change since last visit, patient was previously seen for these victoria- Continue santyl and gent treatment New area of pressure noted to heel, no appearance of abscess at this time- please offload heel and float off of bed- May consider MRI based on clinical picture No osteo per xray AMADO - prelim adequate circulation Please continue current antibiotic treatment per internal med (3) Peripheral artery disease Current Visit: Yes Status: Acute AMADO's ordered Subjective Interval history: Mr. Nascimento is a 80 year old male with a medical history of hypertension, CHF, COPD, atrial fibrillation, alcohol abuse. Arrived to ED with reports of AMS. WBC 7.9, patient receiving vanc and zosyn. Patient denies any chest pain, palpitations, shortness of breath, headache, fever, abdominal pain, nausea. Patient resting comfortably on arrival. Covered xray and AMADO results with patient. Explained that an MRI would be obtained based on clinical picture of heel. Verbalized understanding. Spoke with patient about ECF placement for care and he is refusing. Refused at last admission as well. Objective - Vital Signs Vital Signs: Vital Signs Temp Pulse Resp BP Pulse Ox 04/07/16 11:14 97.2 F L 88 16 89/50 99 04/07/16 09:45 98 04/07/16 07:35 97.3 F L 84 16 102/74 98 04/07/16 03:17 97.0 F L 77 16 93/56 98 04/06/16 22:59 97.4 F L 88 16 102/49 98 04/06/16 19:46 96.3 F L 75 18 93/59 97 04/06/16 16:22 97 F L 88 18 100/62 Intake and Output 04/06/16 04/07/16 04/07/16 23:59 07:59 15:59 Intake Total 1550 / 1550 1650 / 1650 1360 / 1360 Output Total 1350 / 1350 350 / 350 Balance 200 / 200 1300 / 1300 1360 / 1360 Intake: IV Fluids 1100 / 1100 1350 / 1350 1000 / 1000 0.9 % Sodium Chloride 1, 1000 / 1000 1000 / 1000 1000 / 1000 000 ML @ 200 mls/hr IVC . Q5H BRET Rx#:[id number] Zosyn 3.375 GM In 100 / 100 100 / 100 Dextrose 5% (Minibag+) 100 ML 100 ML @ 25 mls/hr IVPB Q8H [facility]RET Rx#: [id number] Vancocin 1,250 MG In 250 / 250 Dextrose 5% 250 ML @ 166. 667 mls/hr IVPB Q24H BRET Rx#:[id number] Oral 450 / 450 300 / 300 360 / 360 Output: Catheter 1350 / 1350 350 / 350 Other: Meal Breakfast Percent of Meal Consumed 100% Stool Size Small # Bowel Movements 1 1 Weight 81.517 kg Patient Weight 04/07/16 23:59 Weight 81.517 kg - Exam Exam: General Examination: CONSTITUTIONAL: Alert, oriented, minimal effort in conversation- EXTREMITIES: CFT 3 seconds all toes. Edema +1 and pedal pulses not palpable at this time SKIN: Skin with decreased turgor, decreased subcutaneous tissue, skin thin and shiny with trophic changes associated with comorbidities as described in history.. NEUROLOGIC: Loss of sensation to moderate touch Left foot assessed- Dressing intact at this time 3.5cmx3.5cm area of ulceration/pressure noted to left heel. Xray negative for osteo of foot but area to heel continues to feel warm to touch and slightly more boggy to palpation today. 2 large wounds with yellow and brown slough wound bed noted to tibial region- Dressings in place - Lab Result Diagrams: 04/06/16 03:58 04/06/16 03:58 Labs: Abnormal lab results RBC 3.36 M/mcL (4.19-5.50) L 04/06/16 03:58 Hgb 10.0 g/dL (12.9-16.9) L 04/06/16 03:58 Hct 30.1 % (37.5-50.1) L 04/06/16 03:58 Sodium 133 mEq/L (136-145) L 04/06/16 03:58 Calculated Osmolality 276 (280-300) L 04/06/16 03:58 Calcium 7.3 mg/dL (8.6-10.8) L 04/06/16 03:58 Microbiology, Last 48 Hours 04/05/16 09:00 Wound Culture - Final Left Foot Methicillin Resistant S.aureus 04/05/16 09:00 Wound Culture - Final Back Staphylococcus aureus 04/05/16 09:00 Wound Culture - Final Left Leg Methicillin Resistant S.aureus Consult Discharge Plan - Plan [facility]errals: [facility] [Non-Partnered Physician] - 04/13/16 1:30 pm (Please follow up as schedule...)
--- NOTE | 2016-04-07 14:00 | Internal Med Progress Note ---
Date of Encounter: 04/07/16 Time of Encounter: 13:57 - Assessment and plan (1) Sepsis Current Visit: Yes Status: Acute Assessment and plan: Sepsis secondary to urinary tract infection combination of cellulitis/necrotic ulcers/ eschars in his left lower extremity and mid thoracic area Hypotension, leukocytosis and tachycardia Continue vancomycin IV and Zosyn day 4, consider discontinuing Zosyn if blood pressure improves cultures from thoracic wound is growing MSSA and wounds from his feet are growing MRSA Aggressive hydration, consider pressors if needed Podiatry following the case, MRI of the foot ordered to avoid possible osteomyelitis (x-rays were negative for osteomyelitis) Surgery consulted for possible debridement on thoracic wound/eschar High risk due to sepsis Qualifiers: Sepsis type: sepsis due to unspecified organism Qualified Code(s): A41.9 - Sepsis, unspecified organism (2) Acute kidney injury Current Visit: Yes Status: Acute Assessment and plan: Improving on IV fluids (3) Necrotic eschar Current Visit: Yes Status: Acute (4) Necrotic toes Current Visit: Yes Status: Acute Assessment and plan: Dr. Posada was consulted, recommending only medical management for now (5) Atrial fibrillation Current Visit: No Status: Acute Assessment and plan: Continue Cardizem Hold Lasix Qualifiers: Atrial fibrillation type: chronic Qualified Code(s): I48.2 - Chronic atrial fibrillation (6) Urinary tract infection Current Visit: No Status: Acute Assessment and plan: Culture grew mixed arterial unable to be identified Qualifiers: Urinary tract infection type: acute cystitis Hematuria presence: with hematuria Qualified Code(s): N30.01 - Acute cystitis with hematuria (7) Alcohol abuse Current Visit: No Status: Chronic Assessment and plan: Ativan as needed (8) Hypotension Current Visit: No Status: Resolved Assessment and plan: IVF Qualifiers: Hypotension type: unspecified hypotension type Qualified Code(s): I95.9 - Hypotension, unspecified (9) Peripheral artery disease Current Visit: Yes Status: Acute Assessment and plan: Continue aspirin and Plavix ABIs ordered High risk for sepsis (10) CHF (congestive heart failure) Current Visit: Yes Status: Acute Assessment and plan: EF 45-50% diastolic function indetermined hold lasix for now Qualifiers: Congestive heart failure type: combined Qualified Code(s): I50.40 - Unspecified combined systolic (congestive) and diastolic (congestive) heart failure - Time Spent With Patient Greater than 35 minutes - Subjective Interval history: Still hypotensive in the high 80s but is not symptomatic, more awake than yesterday, complains of pain on his left lower extremity 4 out of 10 in intensity. Denies any abdominal pain, shortness of breath, no dysuria. No fevers - Constitutional Vitals: Temp Pulse Resp BP Pulse Ox 97.2 F L 88 16 89/50 99 04/07/16 11:14 04/07/16 11:14 04/07/16 11:14 04/07/16 11:14 04/07/16 11:14 General appearance: Present: A&O X 3 - Head Head exam: Present: atraumatic, normocephalic - Eye Eye exam: Present: PERRL, conjuntiva pink, sclera anicteric Pupils: Present: PERRL - Neck Neck exam general surgery: Present: supple, trachea midline. Absent: lymphadenopathy - Respiratory Respiratory exam: Present: CTAB. Absent: accessory muscle use, rales, rhonchi, wheezes - Cardiovascular Cardiovascular exam: Present: RRR, +S1, +S2. Absent: diastolic murmur, gallop, rubs, systolic murmur - GI/Abdominal GI/Abdominal exam: Present: normal bowel sounds, soft, no peritoneal signs. Absent: distended, tenderness - Extremities Exam Extremities exam: Present: warm, radial pulses palpable and symetrical. Absent : calf tenderness, cyanotic, pedal edema Additional comments: Multiple necrotic wounds in the left foot, left langford, some erythematous tissue surrounding each wound 4 cm in diameter each Large necrotic wound in the mid thoracic area 4 x 3 cm surrounded by erythema as well. - Neurological Exam Neurological exam: Present: CN II-XII intact, oriented X3, no focal deficits. Absent: pronater drift, facial droop, speech deficit - Skin Skin exam: Present: dry. Absent: intact Internal Medicine: Result - Labs CBC & Chem 7: 04/06/16 03:58 04/06/16 03:58 - Impressions Impressions Foot X-Ray 04/06/16 16:35 IMPRESSION: Diffuse swelling without acute osseous abnormality D/ / Leon Guerrero MD / Leon Guerrero MD Interpreting Provider: Leon Guerrero MD Consult Discharge Plan - Plan [facility]errals: [facility] [Non-Partnered Physician] - 04/13/16 1:30 pm (Please follow up as schedule...)
--- NOTE | 2016-04-07 15:57 | General Surgery Consult Note ---
Date of Encounter: 04/07/16 Time of Encounter: 15:40 Assessment and Plan (1) Decubitus ulcer of back Current Visit: Yes Status: Acute Continue Santyl daily. Plan for debridement tomorrow by Yumiko Sanchez CNP. Qualifiers: Pressure ulcer stage: unstageable Qualified Code(s): L89.100 - Pressure ulcer of unspecified part of back, unstageable History of Present Illness Consult date: 04/07/16 Reason for consult: wound care Requesting physician: Cheo Wilkinson History of present illness: Mr. Nascimento admitted for Sepsis, ANNA, hypotension, UTI, foot ulcers. Surgery consulted for wound evaluation. Patient denies any pain, other than chronic back pain since surgery in 2006. He is unsure why was admitted, though states he has issues with low blood pressure. Patient agreeable to wound debridement tomorrow. Past Med Surg Social Fam HX - Past Medical History Source: patient Medical history: atrial fibrillation, CHF, COPD, coronary artery disease, hypertension, myocardial infarction, TIA, other Psychiatric history: anxiety, depression - Past Surgical History Surgical History: angioplasty/stent, heart valve replacement - Social History Smoking Status: Former smoker Smokeless Tobacco Status: No Alcohol use: heavy Drug use: none Medications and Allergies Aspirin 1 tab PO DAILY 08/30/15 [History] Cyanocobalamin (B-12) [Vitamin B12] 1,000 mcg PO DAILY 08/30/15 [History] Gabapentin [Neurontin] 300 mg PO TID 08/30/15 [History] Nitroglycerin [Nitrostat] 0.4 mg SL Q3-5MIN PRN 08/30/15 [History] Omeprazole [PriLOSEC] 20 mg PO BID 08/30/15 [History] Tamsulosin HCl [Flomax] 1 cap PO QAM 08/30/15 [History] Atorvastatin [Lipitor] 10 mg PO HS 03/02/16 [History] Clopidogrel [Plavix] 75 mg PO DAILY 03/02/16 [History] Furosemide [Lasix] 40 mg PO DAILY 03/02/16 [History] Diltiazem HCl [Diltiazem 24Hr Cd] 180 mg PO BID 03/04/16 [History] Collagenase Oint [Santyl] 1 appl TP DAILY #2 tube 03/08/16 [Rx] Ergocalciferol (VITAMIN D2) [Drisdol (50,000 Unit)] 50,000 unit PO QWEEK #15 capsule 03/08/16 [Rx] Fluticasone Propionate Nasal [Flonase] 50 mcg NS DAILY #1 bottle 03/08/16 [Rx] Folic Acid 1 mg PO DAILY #90 tablet 03/08/16 [Rx] Gentamicin Oint [Garamycin] 1 appl TP DAILY #2 tube 03/08/16 [Rx] HYDROcodone/Acet 5/325 mg [[place] 5-325 mg] 1 tab PO Q8H PRN #30 tablet 03/08/16 [Rx] Magnesium Oxide [Magnesium] 400 mg PO BID #60 tablet 03/08/16 [Rx] Multivit/Ca/Min/Fe/FA [Thera M Plus] 1 tab PO DAILY #90 tablet 03/08/16 [Rx] Saline Nasal Sl[place] [[place] Nasal Slovan] 2 spray NS Q2H PRN #2 bottle 03/08/16 [Rx ] Thiamine (B-1) [Vitamin B-1] 100 mg PO DAILY #90 tablet 03/08/16 [Rx] Allergies No Known Allergies Allergy (Verified 08/30/15 18:10) Review of Systems ROS unobtainable: due to mental status All systems PM: A 10-system review of systems was performed and is negative for pertinent findings except as documented above in the HPI. - Constitutional no chills, no fever(s) - EENT Nose, mouth and throat: no dysphagia - Cardiovascular no chest pain, no dyspnea - Respiratory no dyspnea - Gastrointestinal no abdominal pain - Musculoskeletal back pain - Neurological numbness, tingling - Psychiatric confusion General Surgery Exam Initial Vital Signs Temp Pulse Resp BP Pulse Ox 98.1 F 86 18 115/66 95 04/04/16 20:00 04/04/16 20:00 04/04/16 20:00 04/04/16 20:00 04/04/16 20:00 - General physical appearance well developed, well nourished, no distress - Eyes normal ocular movement - ENT normal mucosa, atraumatic, normocephalic - Neck trachea midline - Respiratory normal respiratory effort, clear to auscultation - Cardiovascular Cardiovascular exam: Present: RRR, distant heart sounds - Abdomen Abdomen general surgery: Present: bowel sounds present (hypoactive), soft, non tender - Integumentary Integumentary general surgery: Present: other (Mid thoracic necrotic wound 7x7cm , unstagable. Sacral wound 10x9x0.1cm, stage 2.) - Neurologic Present: CN 2-12 grossly intact - Psychiatric Psychiatric general surgery: Present: speech is normal. Absent: memory intact ( unsure of why inpatient) Exam Initial Vital Signs Temp Pulse Resp BP Pulse Ox 98.1 F 86 18 115/66 95 04/04/16 20:00 04/04/16 20:00 04/04/16 20:00 04/04/16 20:00 04/04/16 20:00 Results - Labs 04/06/16 03:58 04/06/16 03:58 Abnormal lab results RBC 3.36 M/mcL (4.19-5.50) L 04/06/16 03:58 Hgb 10.0 g/dL (12.9-16.9) L 04/06/16 03:58 Hct 30.1 % (37.5-50.1) L 04/06/16 03:58 Sodium 133 mEq/L (136-145) L 04/06/16 03:58 Calculated Osmolality 276 (280-300) L 04/06/16 03:58 Calcium 7.3 mg/dL (8.6-10.8) L 04/06/16 03:58 All other labs normal. Consult Discharge Plan - Plan [facility] - 04/13/16 1:30 pm (Please follow up as schedule...)
--- NOTE | 2016-04-07 16:35 | Arterial Study Report ---
LE Arterial Physiologic Study Patient Name:Oren Nascimento Order Number:[id number] Procedure Date:04/06/2016 Date:1935ge:80 yrs Gender:Male Height:177.80 cm / 70.00 inWeight:79.83 kg / 176.00 lb Lt BP:95 / mmHg Rt.BP:90 / mmHgHeart Rate: Location:[facility] Room #: 2a51 Buzzle Buffer:Heri Hernandez RCS, RVS Referring MD:Tiffanie Winter, GUIDANCE CONSULTANT cat wagon operator:None Reading MD:Justin Odonnell MD Study Quality:Adequate Primary Indications:Ulcer of lower limb, unspecified Risk Factors Yes/No Hypertension Yes Hypercholesterolemia Yes Hx of TIA Yes Hx of CAD/PTCA Yes Impressions: 1) Bilateral lower extremities waveform demonstrates normal hemodynamics. 2) bilateral Ankle Brachial Index is normal. 3) Overall Impression: Arterial hemodynamics are well maintained at rest. Recommendations: After imaging the patient returned to their room. Prelim results to EMR. Test completed on 04/06/2016 at 7:45:14 pm. Findings Prior Study: No prior study available for comparison. Ankle Brachial Index Right Systolic Diastolic AMADO Brachial 90 1.38 Dorsalis Pedis 108 1.14 Posterior Tibial 131 1.38 Left Systolic Diastolic AMADO Brachial 95 1.38 Dorsalis Pedis 103 1.08 Posterior Tibial 131 1.38 Updated by Justin Odonnell MD on 04/07/2016 4:31:37 PM with Status of Final electronically signed on 04/07/2016 4:32:02 PM with status of Final
[2016-04-08] MEDS: Piperacillin/Tazobactam 3.375 GM in D5% in Water (Mini-Bag+) 100 ML IVPB SCH ×2 (02:09→09:30)
[2016-04-08] MEDS: 0.9 % Sodium Chloride 1,000 ML IVC SCH (04:26)
[2016-04-08 04:34] LABS: Hematocrit 27.5 % (37.5-50.1); Hemoglobin 9.4 g/dL (12.9-16.9); Mean Corpuscular HGB Conc 34.2 g/dL (31.6-35.5); Mean Corpuscular Volume 87.9 fL (83.0-100.0); Mean Platelet Volume 9.9 fL (9.4-12.4); Platelet Count 166 K/mcL (140-400); Red Blood Count 3.13 M/mcL (4.19-5.50); Red Cell Distribution Width 14.5 % (11.5-14.5)
[2016-04-08 04:50] LABS: BUN/Creatinine Ratio 11 (6-26); Blood Urea Nitrogen 9 mg/dL (8-26); Calcium 7.2 mg/dL (8.6-10.8); Carbon Dioxide 17 mEq/L (19-29); Chloride 111 mEq/L (98-109); Glucose 94 mg/dL (70-99); Osmolality,Calculated 274 (280-300); Potassium 3.5 mEq/L (3.5-4.5); Sodium 133 mEq/L (136-145); eGFR For African Americans > 60 (> 60); eGFR For Non-African Americans > 60 (> 60)
[2016-04-08] MEDS ORDERED: Vancomycin 1,250 MG in D5% in Water 250 ML IVPB SCH (06:22)
[2016-04-08] MEDS: Vancomycin 1,250 MG in D5% in Water 250 ML IVPB SCH (06:27)
[2016-04-08] MEDS: *HR* Heparin 5,000 UNIT/ML VIAL SQ SCH ×2 (06:46→17:51)
[2016-04-08] MEDS: Aspirin 81 MG TAB.CHEW PO SCH (09:29)
[2016-04-08] MEDS: Multivit/Ca/Min/Fe/FA 1 TAB TABLET PO SCH (09:29)
[2016-04-08] MEDS: Fluticasone Propionate Nasal 50 MCG/SPRAY BOTTLE NS SCH (09:30)
[2016-04-08] MEDS: Folic Acid 1 MG TABLET PO SCH (09:30)
[2016-04-08] MEDS: Cyanocobalamin (B-12) 1,000 MCG TABLET PO SCH (09:30)
[2016-04-08] MEDS: Thiamine (B-1) 100 MG TABLET PO SCH (09:30)
[2016-04-08] MEDS: Magnesium Oxide 400 MG TABLET PO SCH ×2 (09:30→23:06)
[2016-04-08] MEDS: Gentamicin Oint 15 GM TUBE TP SCH (09:30)
[2016-04-08] MEDS: Gabapentin 300 MG CAPSULE PO SCH ×3 (09:30→23:06)
[2016-04-08] MEDS: Diltiazem CD (24hr) 180 MG CAPSULE PO SCH ×3 (09:46→23:06)
--- NOTE | 2016-04-08 11:09 | General Surgery Procedure Note ---
Date of procedure: 04/08/16 Pre-op diagnosis: Necrotic back wound Post-op diagnosis: same Procedure: After informed consent was obtained and time-out performed, the patient was placed in the right lateral position. A #10 blade scalpel was used to debride fibrous/necrotic tissue from the wound. Sharp debridement was carried out through the skin and subcutaneous tissue. 80% granulation tissue exposure was obtained. Minimal bleeding noted stopped with the use of minimal pressure. The wound was cleansed with and nickel thick santyl was applied. The wound was covered with Allevyn dressing. The patient tolerated well. Complications: none Anesthesia: none Surgeon: Jessica Sanchez Estimated blood loss (cc): 0.5 Pathology: none sent Condition: stable Disposition: no change
--- NOTE | 2016-04-08 11:12 | General Surgery Progress Note ---
Date of Encounter: 04/08/16 Time of Encounter: 09:30 - Assessment and Plan (1) Decubitus ulcer of back Current Visit: Yes Status: Acute Sharp debridement to be carried out today at the bedside Continue Santyl/Gentamicin and Allevyn Pressure relief measures F/U in wound care in 2 weeks Qualifiers: Pressure ulcer stage: unstageable Qualified Code(s): L89.100 - Pressure ulcer of unspecified part of back, unstageable (2) Sacral decubitus ulcer Current Visit: Yes Status: Acute Continue daily wound care as ordered Qualifiers: Pressure ulcer stage: stage 3 Qualified Code(s): L89.153 - Pressure ulcer of sacral region, stage 3 Subjective Patient reports: no new complaints, feels better, afebrile Objective Vital Signs - Last 8 Hours Temp Pulse Resp BP Pulse Ox 04/08/16 10:35 97.4 F L 69 16 104/62 99 04/08/16 07:41 97.9 F 102 20 95/62 95 04/08/16 06:31 98.7 F 04/08/16 05:13 98.4 F 100 17 98/64 94 L 04/08/16 04:38 99.0 F 04/08/16 03:38 98.7 F Intake and Output 04/07/16 04/08/16 04/08/16 23:59 07:59 15:59 Intake Total 1100 / 1100 1100 / 1100 240 / 240 Output Total 825 / 825 375 / 375 Balance 275 / 275 725 / 725 240 / 240 Intake: IV Fluids 1100 / 1100 1100 / 1100 0.9 % Sodium Chloride 1, 1000 / 1000 1000 / 1000 000 ML @ 200 mls/hr IVC . Q5H BRET Rx#:[id number] Zosyn 3.375 GM In 100 / 100 100 / 100 Dextrose 5% (Minibag+) 100 ML 100 ML @ 25 mls/hr IVPB Q8H BRET Rx#: [id number] Oral 240 / 240 Output: Urine 0 / 0 Catheter 825 / 825 375 / 375 Other: Meal Breakfast Percent of Meal Consumed 50% Weight 82 kg Patient Weight 04/08/16 23:59 Weight 82 kg - General physical appearance no distress, chronically ill - Eyes normal ocular movement - ENT normal mucosa, atraumatic, normocephalic - Neck Neck exam: trachea midline - Respiratory normal respiratory effort - Abdomen Abdomen: Present: soft, non tender - Integumentary other (back wound- 7X7 with 100% fibrous tissue/necrosis, unstageable; coccyx wound- 10X9X0.1 with 100% granulation tissue.) - Neurologic CN 2-12 grossly intact - Musculoskeletal other (severe deconditioning) - Psychiatric oriented to time, oriented to person, oriented to place, speech is normal, memory intact - Labs 04/08/16 04:18 04/08/16 04:18 Diabetes panel 04/08/16 Range/Units 04:18 Sodium 133 L (136-145) mEq/L Potassium 3.5 (3.5-4.5) mEq/L Chloride 111 H (98-109) mEq/L Carbon Dioxide 17 L (19-29) mEq/L BUN 9 (8-26) mg/dL Creatinine 0.83 (0.72-1.25) mg/dL Glucose 94 (70-99) mg/dL Calcium 7.2 L (8.6-10.8) mg/dL Calcium panel 04/08/16 Range/Units 04:18 Calcium 7.2 L (8.6-10.8) mg/dL Pituitary panel 04/08/16 Range/Units 04:18 Sodium 133 L (136-145) mEq/L Potassium 3.5 (3.5-4.5) mEq/L Chloride 111 H (98-109) mEq/L Carbon Dioxide 17 L (19-29) mEq/L BUN 9 (8-26) mg/dL Creatinine 0.83 (0.72-1.25) mg/dL Glucose 94 (70-99) mg/dL Calcium 7.2 L (8.6-10.8) mg/dL Adrenal panel 04/08/16 Range/Units 04:18 Sodium 133 L (136-145) mEq/L Potassium 3.5 (3.5-4.5) mEq/L Chloride 111 H (98-109) mEq/L Carbon Dioxide 17 L (19-29) mEq/L BUN 9 (8-26) mg/dL Creatinine 0.83 (0.72-1.25) mg/dL Glucose 94 (70-99) mg/dL Calcium 7.2 L (8.6-10.8) mg/dL Consult Discharge Plan - Plan Additional Instructions: Wound Care: pressure injury to mid back - buttock excoriation/denuded skin - black eschar to left langford - cleanse all areas with HCG soap and water - rinse well with water and pat dry - apply Santyl and Gentamicin ointments mixed 50:50 nickel thick to all areas - cover back wound and L. langford eschar with Allevyn Multisite Foam Dressings and change daily - cover buttock wounds with adaptic gauze - pad with 5x9 ABD - hold secure with medipore tape - change daily and prn if soiled Turn q2h [facility]errals: [facility] [Non-Partnered Physician] - 04/13/16 1:30 pm (Please follow up as schedule...) Justin Odonnell MD [Partnered Physician] - (2 week follow-up in wound care; [phone])
[2016-04-08] MEDS: *HR* HYDROcodone/Acet 5/325 mg TABLET PO PRN (11:27)
--- NOTE | 2016-04-08 13:07 | Internal Med Progress Note ---
Date of Encounter: 04/08/16 Time of Encounter: 13:04 - Assessment and plan (1) Sepsis Current Visit: Yes Status: Acute Assessment and plan: Sepsis secondary to urinary tract infection in combination with cellulitis/ necrotic ulcers/ eschars in his left lower extremity and thoracolumbar area infected with MRSA Hypotension, leukocytosis and tachycardia Continue vancomycin IV day 5 Discontinue Zosyn day 4 cultures from thoracic wound is growing MSSA and wounds from his feet are growing MRSA Aggressive hydration, consider pressors if needed Podiatry following the case, MRI of the foot ordered to avoid possible osteomyelitis (x-rays were negative for osteomyelitis) Surgery consulted for possible debridement on thoracic wound/eschar High risk due to sepsis Qualifiers: Sepsis type: sepsis due to unspecified organism Qualified Code(s): A41.9 - Sepsis, unspecified organism (2) Acute kidney injury Current Visit: Yes Status: Acute Assessment and plan: Improving on IV fluids (3) Necrotic eschar Current Visit: Yes Status: Acute (4) Necrotic toes Current Visit: Yes Status: Acute Assessment and plan: Dr. Posada was consulted, recommending only medical management for now X-rays and MRIs did not show any osteomyelitis. MRI shows no drainable fluid collection in just edema with possible cellulitis versus lymphedema. Mild second through fifth extensor tenosynovitis the level of the metatarsals, moderate first and mild second MTP degenerative changes (5) Atrial fibrillation Current Visit: No Status: Acute Assessment and plan: Continue Cardizem Hold Lasix Qualifiers: Atrial fibrillation type: chronic Qualified Code(s): I48.2 - Chronic atrial fibrillation (6) Urinary tract infection Current Visit: No Status: Acute Assessment and plan: Culture grew mixed arterial unable to be identified Qualifiers: Urinary tract infection type: acute cystitis Hematuria presence: with hematuria Qualified Code(s): N30.01 - Acute cystitis with hematuria (7) Alcohol abuse Current Visit: No Status: Chronic Assessment and plan: Ativan as needed (8) Hypotension Current Visit: No Status: Resolved Assessment and plan: IVF Qualifiers: Hypotension type: unspecified hypotension type Qualified Code(s): I95.9 - Hypotension, unspecified (9) Peripheral artery disease Current Visit: Yes Status: Acute Assessment and plan: Continue aspirin and Plavix ABIs ordered High risk for sepsis (10) CHF (congestive heart failure) Current Visit: Yes Status: Acute Assessment and plan: EF 45-50% diastolic function indetermined hold lasix for now Qualifiers: Congestive heart failure type: combined Qualified Code(s): I50.40 - Unspecified combined systolic (congestive) and diastolic (congestive) heart failure - Subjective Interval history: Blood pressure is improving now in the low 100s. Was hypotensive in the high 80s but was not symptomatic, more awake, complains of pain on his left lower extremity 4 out of 10 in intensity. Denies any abdominal pain, shortness of breath, no dysuria. No fevers - Constitutional Vitals: Temp Pulse Resp BP Pulse Ox 97.4 F L 69 16 104/62 99 04/08/16 10:35 04/08/16 10:35 04/08/16 10:35 04/08/16 10:35 04/08/16 10:35 General appearance: Present: A&O X 3 - Head Head exam: Present: atraumatic, normocephalic - Eye Eye exam: Present: PERRL, conjuntiva pink, sclera anicteric Pupils: Present: PERRL - Neck Neck exam general surgery: Present: supple, trachea midline. Absent: lymphadenopathy - Respiratory Respiratory exam: Present: decreased breath sounds, CTAB. Absent: accessory muscle use, rales, rhonchi, wheezes - Cardiovascular Cardiovascular exam: Present: RRR, +S1, +S2. Absent: diastolic murmur, gallop, rubs, systolic murmur - GI/Abdominal GI/Abdominal exam: Present: distended, normal bowel sounds, soft, no peritoneal signs. Absent: tenderness - Extremities Exam Extremities exam: Present: warm, radial pulses palpable and symetrical. Absent : calf tenderness, cyanotic, pedal edema Additional comments: Several burn wounds covered by dressing with left lower extremity with surrounding erythema Lumbothoracic wound was debrided and has surrounding erythema and is covered by dressing 7 x 7 cm with fibrosed necrotic tissue, unstageable coccyx wound 10 x 9 x 0.1 with 100% granulation tissue - Neurological Exam Neurological exam: Present: CN II-XII intact, oriented X3, no focal deficits. Absent: pronater drift, facial droop, speech deficit - Skin Skin exam: Present: dry, intact Internal Medicine: Result - Labs CBC & Chem 7: 04/08/16 04:18 04/08/16 04:18 Labs: Short CBC 04/08/16 Range/Units 04:18 WBC 6.2 (4.3-11.1) K/mcL Hgb 9.4 L (12.9-16.9) g/dL Hct 27.5 L (37.5-50.1) % Plt Count 166 (140-400) K/mcL BMP 04/08/16 04:18 Sodium 133 L Potassium 3.5 Chloride 111 H Carbon Dioxide 17 L BUN 9 Creatinine 0.83 Glucose 94 Calcium 7.2 L - Impressions Impressions Foot MRI 04/07/16 13:01 IMPRESSION: 1. No osteomyelitis. 2. Nonspecific diffuse subcutaneous edema compatible cellulitis versus lymphedema. No drainable fluid collection. 3. Mild 2nd through 5th extensor tenosynovitis at the level of the metatarsals. 4. Moderate 1st and mild 2nd MTP degenerative changes. D/ / Lon Goetz MD / Lon Goetz MD Interpreting Provider: Lon Goetz MD Ankle MRI 04/07/16 17:08 IMPRESSION: 1. No osteomyelitis. 2. Nonspecific diffuse subcutaneous edema compatible cellulitis versus lymphedema. No drainable fluid collection. 3. Mild 2nd through 5th extensor tenosynovitis at the level of the metatarsals. 4. Moderate 1st and mild 2nd MTP degenerative changes. D/ / Lon Goetz MD / Lon Goetz MD Interpreting Provider: Lon Goetz MD Consult Discharge Plan - Plan Additional Instructions: Wound Care: pressure injury to mid back - buttock excoriation/denuded skin - black eschar to left langford - cleanse all areas with HCG soap and water - rinse well with water and pat dry - apply Santyl and Gentamicin ointments mixed 50:50 nickel thick to all areas - cover back wound and L. lang[place] eschar with Allevyn Multisite Foam Dressings and change daily - cover buttock wounds with adaptic gauze - pad with 5x9 ABD - hold secure with medipore tape - change daily and prn if soiled Turn q2h Referrals: Justin Odonnell MD [Partnered Physician] - (2 week follow-up in wound care; [phone]) [facility] - 04/13/16 1:30 pm (Please follow up as schedule...)
[2016-04-09] MEDS: Vancomycin 1,250 MG in D5% in Water 250 ML IVPB SCH (05:21)
[2016-04-09] MEDS: *HR* Heparin 5,000 UNIT/ML VIAL SQ SCH ×2 (06:46→18:06)
[2016-04-09 06:54] LABS: Hematocrit 28.9 % (37.5-50.1); Hemoglobin 9.8 g/dL (12.9-16.9); Mean Corpuscular HGB Conc 33.9 g/dL (31.6-35.5); Mean Corpuscular Hemoglobin 29.6 pg (28.0-33.3); Mean Corpuscular Volume 87.3 fL (83.0-100.0); Mean Platelet Volume 9.7 fL (9.4-12.4); Platelet Count 159 K/mcL (140-400); Red Blood Count 3.31 M/mcL (4.19-5.50); Red Cell Distribution Width 14.6 % (11.5-14.5)
[2016-04-09 06:57] LABS: BUN/Creatinine Ratio 9 (6-26); Blood Urea Nitrogen 8 mg/dL (8-26); Calcium 7.7 mg/dL (8.6-10.8); Carbon Dioxide 15 mEq/L (19-29); Chloride 112 mEq/L (98-109); Glucose 100 mg/dL (70-99); Osmolality,Calculated 276 (280-300); Potassium 4.2 mEq/L (3.5-4.5); Sodium 134 mEq/L (136-145); eGFR For African Americans > 60 (> 60); eGFR For Non-African Americans > 60 (> 60)
[2016-04-09] MEDS: Multivit/Ca/Min/Fe/FA 1 TAB TABLET PO SCH (08:18)
[2016-04-09] MEDS: Diltiazem CD (24hr) 180 MG CAPSULE PO SCH ×2 (08:18→21:08)
[2016-04-09] MEDS: Thiamine (B-1) 100 MG TABLET PO SCH (08:18)
[2016-04-09] MEDS: Cyanocobalamin (B-12) 1,000 MCG TABLET PO SCH (08:18)
[2016-04-09] MEDS: Magnesium Oxide 400 MG TABLET PO SCH ×2 (08:18→21:08)
[2016-04-09] MEDS: Gabapentin 300 MG CAPSULE PO SCH ×3 (08:19→21:08)
[2016-04-09] MEDS: Aspirin 81 MG TAB.CHEW PO SCH (08:19)
[2016-04-09] MEDS: Fluticasone Propionate Nasal 50 MCG/SPRAY BOTTLE NS SCH (08:19)
[2016-04-09] MEDS: Folic Acid 1 MG TABLET PO SCH (08:19)
--- NOTE | 2016-04-09 14:53 | Internal Med Progress Note ---
Date of Encounter: 04/09/16 Time of Encounter: 14:50 - Assessment and plan (1) Sepsis Current Visit: Yes Status: Acute Assessment and plan: Sepsis secondary to urinary tract infection in combination with cellulitis/ necrotic ulcers/ eschars in his left lower extremity and thoracolumbar area infected with MRSA Hypotension, leukocytosis and tachycardia Continue vancomycin IV day 6 Discontinue Zosyn day 4 cultures from thoracic wound is growing MSSA and wounds from his feet are growing MRSA Continue hydration, consider pressors if needed Podiatry following the case, MRI of the foot ordered to avoid possible osteomyelitis (x-rays were negative for osteomyelitis) Surgery consulted , performed debridement on thoracic wound/eschar on 04/08/2016 CO2 is dropping, order a venous pH/gas High risk due to sepsis Qualifiers: Sepsis type: sepsis due to unspecified organism Qualified Code(s): A41.9 - Sepsis, unspecified organism (2) Acute kidney injury Current Visit: Yes Status: Acute Assessment and plan: Back to baseline on IV fluids (3) Necrotic eschar Current Visit: Yes Status: Acute (4) Necrotic toes Current Visit: Yes Status: Acute Assessment and plan: Dr. Posada was consulted, recommending only medical management for now X-rays and MRIs did not show any osteomyelitis. MRI shows no drainable fluid collection in just edema with possible cellulitis versus lymphedema. Mild second through fifth extensor tenosynovitis the level of the metatarsals, moderate first and mild second MTP degenerative changes (5) Atrial fibrillation Current Visit: No Status: Acute Assessment and plan: Continue Cardizem Hold Lasix Qualifiers: Atrial fibrillation type: chronic Qualified Code(s): I48.2 - Chronic atrial fibrillation (6) Urinary tract infection Current Visit: No Status: Acute Assessment and plan: Culture grew mixed arterial unable to be identified Qualifiers: Urinary tract infection type: acute cystitis Hematuria presence: with hematuria Qualified Code(s): N30.01 - Acute cystitis with hematuria (7) Alcohol abuse Current Visit: No Status: Chronic Assessment and plan: Ativan as needed (8) Hypotension Current Visit: No Status: Resolved Assessment and plan: IVF Qualifiers: Hypotension type: unspecified hypotension type Qualified Code(s): I95.9 - Hypotension, unspecified (9) Peripheral artery disease Current Visit: Yes Status: Acute Assessment and plan: Continue aspirin and Plavix ABIs ordered High risk for sepsis (10) CHF (congestive heart failure) Current Visit: Yes Status: Acute Assessment and plan: EF 45-50% diastolic function indetermined hold lasix for now Qualifiers: Congestive heart failure type: combined Qualified Code(s): I50.40 - Unspecified combined systolic (congestive) and diastolic (congestive) heart failure (11) Hypothermia Current Visit: Yes Status: Acute Assessment and plan: Unclear etiology Qualifiers: Encounter type: initial encounter Qualified Code(s): T68.XXXA - Hypothermia , initial encounter - Time Spent With Patient Greater than 35 minutes - Subjective Interval history: Temperature was 95.5 last night, denies ago he was almost 94 as well. Was hypotensive in the high 80s but was not symptomatic, more awake, complains of pain on his left lower extremity 4 out of 10 in intensity. Denies any abdominal pain, shortness of breath, no dysuria. No fevers - Constitutional Vitals: Temp Pulse Resp BP Pulse Ox 97.5 F L 96 18 96/58 97 04/09/16 12:40 04/09/16 12:40 04/09/16 12:40 04/09/16 12:40 04/09/16 12:40 General appearance: Present: A&O X 3 - Head Head exam: Present: atraumatic, normocephalic - Eye Eye exam: Present: PERRL, conjuntiva pink, sclera anicteric Pupils: Present: PERRL - Neck Neck exam general surgery: Present: supple, trachea midline. Absent: lymphadenopathy - Respiratory Respiratory exam: Present: CTAB. Absent: accessory muscle use, rales, rhonchi, wheezes - Cardiovascular Cardiovascular exam: Present: RRR, +S1, +S2. Absent: diastolic murmur, gallop, rubs, systolic murmur - GI/Abdominal GI/Abdominal exam: Present: normal bowel sounds, soft, no peritoneal signs. Absent: distended, tenderness - Extremities Exam Extremities exam: Present: warm, radial pulses palpable and symetrical. Absent : calf tenderness, cyanotic, pedal edema Additional comments: Several burn wounds covered by dressing with left lower extremity with surrounding erythema Lumbothoracic wound was debrided and has surrounding erythema and is covered by dressing 7 x 7 cm with fibrosed necrotic tissue, unstageable coccyx wound 10 x 9 x 0.1 with 100% granulation tissue - Neurological Exam Neurological exam: Present: CN II-XII intact, oriented X3, no focal deficits. Absent: pronater drift, facial droop, speech deficit - Skin Skin exam: Present: dry, intact Internal Medicine: Result - Labs CBC & Chem 7: 04/09/16 06:28 04/09/16 06:28 Labs: Short CBC 04/09/16 Range/Units 06:28 WBC 6.2 (4.3-11.1) K/mcL Hgb 9.8 L (12.9-16.9) g/dL Hct 28.9 L (37.5-50.1) % Plt Count 159 (140-400) K/mcL BMP 04/09/16 06:28 Sodium 134 L Potassium 4.2 Chloride 112 H Carbon Dioxide 15 L BUN 8 Creatinine 0.85 Glucose 100 H Calcium 7.7 L Consult Discharge Plan - Plan Additional Instructions: Wound Care: pressure injury to mid back - buttock excoriation/denuded skin - black eschar to left langford - cleanse all areas with HCG soap and water - rinse well with water and pat dry - apply Santyl and Gentamicin ointments mixed 50:50 nickel thick to all areas - cover back wound and L. langford eschar with Allevyn Multisite Foam Dressings and change daily - cover buttock wounds with adaptic gauze - pad with 5x9 ABD - hold secure with medipore tape - change daily and prn if soiled Turn q2h Referrals: Justin Odonnell MD [Partnered Physician] - (2 week follow-up in wound care; ) [facility] [[facility]] - 04/13/16 1:30 pm (Please follow up as schedule...)
[2016-04-09 15:22] LABS: VBG PH 7.34 pH Units (7.32-7.42)
[2016-04-09] MEDS: 0.9 % Sodium Chloride 1,000 ML IVC SCH (17:39)
[2016-04-09] MEDS: Phenylephrine Nasal 0.25% 15 ML BOTTLE NS PRN (18:30)
[2016-04-09] MEDS: Gentamicin Oint 15 GM TUBE TP SCH (20:59)
[2016-04-10] MEDS: 0.9 % Sodium Chloride 1,000 ML IVC SCH (06:10)
[2016-04-10] MEDS: *HR* Heparin 5,000 UNIT/ML VIAL SQ SCH ×2 (06:10→18:45)
[2016-04-10] MEDS: Diltiazem CD (24hr) 180 MG CAPSULE PO SCH ×2 (08:34→21:04)
[2016-04-10] MEDS: Magnesium Oxide 400 MG TABLET PO SCH ×2 (08:34→21:04)
[2016-04-10] MEDS: Cyanocobalamin (B-12) 1,000 MCG TABLET PO SCH (08:34)
[2016-04-10] MEDS: Multivit/Ca/Min/Fe/FA 1 TAB TABLET PO SCH (08:34)
[2016-04-10] MEDS: Folic Acid 1 MG TABLET PO SCH (08:35)
[2016-04-10] MEDS: Thiamine (B-1) 100 MG TABLET PO SCH (08:35)
[2016-04-10] MEDS: Fluticasone Propionate Nasal 50 MCG/SPRAY BOTTLE NS SCH (08:35)
[2016-04-10] MEDS: Aspirin 81 MG TAB.CHEW PO SCH (08:35)
[2016-04-10] MEDS: Gabapentin 300 MG CAPSULE PO SCH ×3 (08:35→21:04)
[2016-04-10] MEDS: Gentamicin Oint 15 GM TUBE TP SCH (08:37)
[2016-04-10 08:38] LABS: Hematocrit 31.1 % (37.5-50.1); Hemoglobin 10.2 g/dL (12.9-16.9); Mean Corpuscular HGB Conc 32.8 g/dL (31.6-35.5); Mean Corpuscular Hemoglobin 29.5 pg (28.0-33.3); Mean Corpuscular Volume 89.9 fL (83.0-100.0); Mean Platelet Volume 9.5 fL (9.4-12.4); Platelet Count 156 K/mcL (140-400); Red Blood Count 3.46 M/mcL (4.19-5.50); Red Cell Distribution Width 14.9 % (11.5-14.5)
[2016-04-10 08:51] LABS: BUN/Creatinine Ratio 10 (6-26); Blood Urea Nitrogen 8 mg/dL (8-26); Calcium 7.9 mg/dL (8.6-10.8); Carbon Dioxide 19 mEq/L (19-29); Chloride 111 mEq/L (98-109); Glucose 87 mg/dL (70-99); Osmolality,Calculated 278 (280-300); Potassium 4.2 mEq/L (3.5-4.5); Sodium 135 mEq/L (136-145); eGFR For African Americans > 60 (> 60); eGFR For Non-African Americans > 60 (> 60)
[2016-04-10] MEDS: Vancomycin 1,250 MG in D5% in Water 250 ML IVPB SCH (10:35)
[2016-04-10] MEDS: Phenylephrine Nasal 0.25% 15 ML BOTTLE NS PRN (12:21)
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
[2016-04-11] MEDS: *HR* Heparin 5,000 UNIT/ML VIAL SQ SCH ×2 (06:00→18:54)
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
[2016-04-11] MEDS: Gentamicin Oint 15 GM TUBE TP SCH (08:11)
[2016-04-11] MEDS: Fluticasone Propionate Nasal 50 MCG/SPRAY BOTTLE NS SCH (08:11)
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
[2016-04-11] MEDS: Furosemide 40 MG/4 ML VIAL IV SCH ×3 (08:27→22:56)
[2016-04-11] MEDS: Diltiazem CD (24hr) 180 MG CAPSULE PO SCH ×2 (08:30→21:13)
[2016-04-11] MEDS: Gabapentin 300 MG CAPSULE PO SCH ×3 (08:30→20:45)
[2016-04-11] MEDS: Magnesium Oxide 400 MG TABLET PO SCH ×2 (08:30→20:45)
[2016-04-11] MEDS: Thiamine (B-1) 100 MG TABLET PO SCH (08:30)
[2016-04-11] MEDS: Aspirin 81 MG TAB.CHEW PO SCH (08:30)
[2016-04-11] MEDS: Cyanocobalamin (B-12) 1,000 MCG TABLET PO SCH (08:30)
[2016-04-11] MEDS: Multivit/Ca/Min/Fe/FA 1 TAB TABLET PO SCH (08:30)
[2016-04-11] MEDS: Folic Acid 1 MG TABLET PO SCH (08:30)
[2016-04-11] MEDS: Vancomycin 1,250 MG in D5% in Water 250 ML IVPB SCH (09:33)
[2016-04-11] MEDS ORDERED: Furosemide 20 MG/2 ML VIAL IVP ONE (12:10)
[2016-04-12] MEDS: Vancomycin 1,250 MG in D5% in Water 250 ML IVPB SCH (05:40)
[2016-04-12] MEDS: *HR* Heparin 5,000 UNIT/ML VIAL SQ SCH (06:37)
[2016-04-12] MEDS: Multivit/Ca/Min/Fe/FA 1 TAB TABLET PO SCH (09:59)
[2016-04-12] MEDS: Magnesium Oxide 400 MG TABLET PO SCH (09:59)
[2016-04-12] MEDS: Cyanocobalamin (B-12) 1,000 MCG TABLET PO SCH (09:59)
[2016-04-12] MEDS: Thiamine (B-1) 100 MG TABLET PO SCH (10:00)
[2016-04-12] MEDS: Fluticasone Propionate Nasal 50 MCG/SPRAY BOTTLE NS SCH (10:00)
[2016-04-12] MEDS: Aspirin 81 MG TAB.CHEW PO SCH (10:00)
[2016-04-12] MEDS: Gentamicin Oint 15 GM TUBE TP SCH (10:00)
[2016-04-12] MEDS: Gabapentin 300 MG CAPSULE PO SCH ×2 (10:00→14:58)
[2016-04-12] MEDS: Folic Acid 1 MG TABLET PO SCH (10:00)
[2016-04-12] MEDS: Furosemide 40 MG/4 ML VIAL IV SCH (10:48)
[2016-04-12 11:09] VITALS: BP 97/52
[2016-04-12] MEDS: Diltiazem CD (24hr) 180 MG CAPSULE PO SCH (11:15)
--- NOTE | 2016-04-12 15:17 | Event Note ---
Date of Encounter: 04/12/16 Time of Encounter: 11:15 80 year old male with PMH of hypertension, combined CHF, COPD not oxygen dependent, A-fib, alcohol abuse recent hospitalization for sepsis transferred to this facility for management of UTI and MRSA infection of chronic foot ulcers , sacral decubitus ulcers, ANNA on CKD He had been on IV Vancomycin and scheduled for d/c to SNF 04/11 He is seen this morning at bedside, in no form of distress, denies new symptoms X-rays and MRIs did not show any osteomyelitis. MRI shows no drainable fluid collection, Mild second fifth extensor tenosynovitis the level of the metatarsals, moderate first and mild second MTP degenerative changes Kidney function has since returned to baseline Physical Exam: VSS. not in any form of distress. AAOX3, moves all extremities spontaneously. Chest is clear to auscultation bilaterally. Heart sounds S1, S2 only, abdomen is soft, not tender, bowel sounds are present. Wound on back, sacrum and feet in dressings, not removed. He is s/p debridement on thoracic wound/eschar on 04/08/2016 and day 8 on IV Vanco. Plan is for d/c to SNF when socially cleared, continue other management meanwhile Other details as in previous d/c summary 04/11/16
[2016-04-12] MEDS ORDERED: Aminoglycoside Consult 1 EACH MC ONE (16:07)
== END 2016-04-12 16:08 | DRG 853 ==
LOC: 2ANU → SUATTDRO 23:13
PROVIDERS: ADMIT Internal Medicine; ATTEND Internal Medicine